=== PATIENT | male | born 1940 | race Caucasian/White ===

== ENCOUNTER 2018-02-12 10:45 | Inpatient (IN) | payer MEDICARE ==
[~2018-02-12] VITALS: Ht 182.9 cm; Wt 56.0 kg
[~2018-02-12 10:45] MED LIST: AMLODIPINE5 MG PO; AMOXICILLIN500 M1 OR; ASA LO-DOSE81 MG OR; ATENOLOL25 MG OR; HYDRALAZINE HCL25 MG PO; KEFLEX500 MG PO; LIPITOR40 M1 PO; LISINOP/HCTZ1 TA1 OR; LISINOPRIL20 MG PO; METOPROLOL SUCC50 MG PO; PERCOCET1 TA4 PO; PLAVIX75 MG OR; ZETIA10 MG PO
--- NOTE | 2018-02-12 11:05 | NUR ---
PT TRIAGED, TO TX ROOM VIA WC.
[2018-02-12 11:47] LABS: HEMATOCRIT 32.1 % (39.0-50.0); HEMOGLOBIN 10.3 g/dl (14.0-18.0); IMMATURE GRANULOCYTES 1.4 % (0.0-5.0); MEAN CELL VOLUME 95.3 fL CALC (80.0-100.0); MEAN CORPUSCULAR HGB 30.6 pG CALC (26.0-32.0); MEAN CORPUSCULAR HGB CONC 32.1 g/L CALC (32.0-36.0); NEUT# 7.61 thou/uL (1.82-7.42); RED BLOOD COUNT 3.37 mill/uL (4.70-6.10); RED CELL DISTRI WIDTH 13.6 % (11.5-15.5)
[2018-02-12 11:55] LABS: ALBUMIN 3.3 g/dL (3.2-5.0); ALKALINE PHOSPHATASE 111 u/l (38-126); ANION GAP 16 (6-22 (CALC)); BILIRUBIN, TOTAL 1.4 mg/dL (0.0-1.4); BUN 60 mg/dL (8-23); BUN/CREATININE RATIO 23 (12-20 (CALC)); CARBON DIOXIDE 25 mmol/l (22-30); CHLORIDE 104 mmol/l (95-108); CREATININE 2.6 mg/dL (0.7-1.3); GFR 24 ML/MIN (>=60 (CALC)); GFR FOR AFR.AMER. 29 ML/MIN (>=60 (CALC)); POTASSIUM 3.8 mmol/l (3.5-5.1); SGOT/AST 41 u/l (19-48); SODIUM 141 mmol/l (137-146); TOTAL PROTEIN 6.8 g/dL (6.3-8.2)
[2018-02-12 12:05] LABS: INFLUENZA A NONE DETECTED (NONE DETECT); INFLUENZA B NONE DETECTED (NONE DETECT)
--- NOTE | 2018-02-12 12:10 | NUR ---
PT RESTING QUIETLY ON STRETCHER, WITH FAMILY AT BEDSIDE. VITAL SIGNS STABLE AT THIS TIME. ZITHROMAX INFUSING THRU PORT.
--- NOTE | 2018-02-12 12:49 | NUR ---
BOTH ANTIBIOTICS ARE INFUSED. PT RESTING QUIETLY. DR. BENTLEY CALLED AND SPOKE WITH DR. VIGIL ABOUT POSSIBLE ADMISSION
--- NOTE | 2018-02-12 13:37 | NUR ---
TRIED TO GIVE REPORT TO NURSE ON MED SURG BUT NURSE IS UNAVAILABLE AT THIS TIME WILL RETURN CALL SOON POSSIBLE
--- NOTE | 2018-02-12 14:00 | NUR ---
CALLED AGAIN TO GIVE REPORT TO JIM GROVE , BUT REMAINS UNAVAILABLE. PT EATING LUNCH TRAY. NO DISTRESS AT THIS TIME
--- NOTE | 2018-02-12 14:13 | NUR ---
PINA GROVE PHONED, STATES WILL TAKE REPORT FOR JIM AND ACCEPT ADMISSION.
--- NOTE | 2018-02-12 14:16 | NUR ---
REPORT GIVEN TO PINA FOR CONTINUATION OF CARE. PT HAD JUST STOOD UP ON SIDE OF BED FOR URINE, APPROX 400CC OUTPUT OF YELLOW CONCENTRATED URINE, AND STATES FELT REALLY WEAK, HELPED BACK IN BED AND SIDE RAILS UP. CALL LIGHT WITHIN REACH.
--- NOTE | 2018-02-12 14:35 | NUR ---
PT TO FLOOR PER STRETCHER, WITH FAMILY ACCOMPANYING.
[2018-02-12 14:40] VITALS: BP 175/54
--- NOTE | 2018-02-12 14:44 | NUR ---
REPORT RECEIVED FORM REBECCA ON UNIT, PT ARRIVED ON UNIT @ 1427 BY ED STAFF VIA STRETCHER AND TRANSFERRED TO BED, O2 @ 2L VIA NC IN PLACE, TELE MONITOR IN PLACE, DENIED PAIN AT THIS TIME. ORIENTED TO ROOM AND CALL SANDRA, REQUESTED [facility]ICK[facility]OTH AT THIS TIME AND DIETARY NOTIFIED, WILL CONTINUE TO MONITOR, FAMILY AT BEDSIDE.
[2018-02-12 16:37] VITALS: BP 151/64
--- NOTE | 2018-02-12 16:53 | NUR ---
PT REFUSED 1600 MEDS, REPORTED HE HAD EITHER TAKEN THEN ALREADY THIS AM OR HIS RELATIONSHIP SPECIALIST HAD TAKEN HIM OFF THEM.
[2018-02-12 17:44] LABS: URINE BILIRUBIN - DIPSTICK NEGATIVE (NEGATIVE); URINE BLOOD DIPSTICK NEGATIVE (NEGATIVE); URINE CLARITY CLEAR; URINE COLOR YELLOW; URINE GLUCOSE - DIPSTICK NEGATIVE (NEGATIVE); URINE KETONE NEGATIVE (NEGATIVE); URINE LEUK ESTERASE NEGATIVE (NEGATIVE); URINE NITRITE - DIPSTICK NEGATIVE (Negative); URINE PROTEIN - DIPSTICK 100 mg/dL (NEG-TRACE)
[2018-02-12 17:57] LABS: URINE RBC 0-2 RBC/hpf (0-5); URINE WBC 0-2 WBC/hpf (0-5)
--- NOTE | 2018-02-12 19:30 | NUR ---
PATIENT APPEARS SLEEPING WITH HOB ELEVATED AND EYES CLOSED. O2 VIA NASAL CANNULA IN PLACE AT 2LPM. TELE MONITOR IN PLACE. LEFT UPPER CHEST PORT ACCESSED-APPEARS HEALTHY AT THIS TIME. CALL LIGHT IN REACH. WILL CONT TO MONITOR.
[2018-02-12 20:00] VITALS: BP 162/68
--- NOTE | 2018-02-12 21:30 | NUR ---
PATIENT RESTING IN BED-AWAKE ALERT AND ORIENTEDX3. PATIENT WITH O2 VIA NASAL CANNULA IN PLACE. TELE MONITOR IN PLACE. PATIENT WITH FREQUENT LOOSE COUGH-UNABLE TO EXPORATE THE SPUTUM MOST OF THE TIME-TOO WEAK. PATIENT STATES THAT IT IS WHITE WHEN HE IS ABLE TO SPIT IT UP. SAFETY PRECAUTIONS REINFORCED. CALL LIGHT IN REACH. WILL CONT TO MONITOR.
--- NOTE | 2018-02-13 00:06 | NUR ---
PATIENT APPEARS SLEEPING WITH HOB ELEVATED AND EYES CLOSED. O2 VIA NASAL CANNULA IN PLACE. TELE MONITOR IN PLACE. CALL LIGHT IN REACH. WILL CONT TO MONITOR.
[2018-02-13 00:47] VITALS: BP 152/69
--- NOTE | 2018-02-13 02:24 | NUR ---
PATIENT APEARS TO BE SLEEPING WITH HOB ELEVATED AND O2 VIA NASAL CANNULA IN PLACE. CALL LIGHT IN REACH. WILL CONT TO MONITOR
--- NOTE | 2018-02-13 04:42 | NUR ---
PATIENT RESTING IN BED WITH O2 VIA NASAL CANNULA IN PLACE AT 2LPM. PATIENT VOIDED 300 CC OF MARÍA URINEIN URINAL. PATIENT C/O RIB PAIN FROM ALL THE COUGHING AND MEDICATED WITH PERCOCET 10/325MG PO FOR PAIN. LAB WORK DRAWN FROM LEFT UPPER CHEST PORT-FLUSHED PER [facility] PROTOCOL WITH SALINE AND HEP MILLICENT. SITE IS HEALTHY AT THIS TIME. PATIENT CONT WITH COUGH-SEEMS TO BE MORE PRODUCTIVE THROUGH THE NIGHT WITH LIGHT YELLOW SPUTUM. SAFETY PRECAUTIONS REINFORCED. CALL LIGHT IN REACH. WILL CONT TO [id number].
[2018-02-13 04:45] VITALS: BP 178/54
[2018-02-13 05:27] LABS: HEMATOCRIT 27.3 % (39.0-50.0); HEMOGLOBIN 8.9 g/dl (14.0-18.0); IMMATURE GRANULOCYTES 1.5 % (0.0-5.0); MEAN CELL VOLUME 94.8 fL CALC (80.0-100.0); MEAN CORPUSCULAR HGB 30.9 pG CALC (26.0-32.0); MEAN CORPUSCULAR HGB CONC 32.6 g/L CALC (32.0-36.0); NEUT# 6.23 thou/uL (1.82-7.42); RED BLOOD COUNT 2.88 mill/uL (4.70-6.10); RED CELL DISTRI WIDTH 13.6 % (11.5-15.5)
[2018-02-13 05:38] LABS: BILIRUBIN, TOTAL 0.8 mg/dL (0.0-1.4); POTASSIUM 4.3 mmol/l (3.5-5.1); TOTAL PROTEIN 5.5 g/dL (6.3-8.2)
[2018-02-13 05:47] LABS: ALBUMIN 2.6 g/dL (3.2-5.0)
--- NOTE | 2018-02-13 07:17 | NUR ---
REPORT RECEIVED FROM MAINE JONES; PT LAYING IN BED AWAKE REQUEST A BLANKET WHICH WAS PROVIDED; PT STATED THAT HE WANTS TO REST IN BED TODAY; NO S/S OF DISTRESS NOTED.
--- NOTE | 2018-02-13 07:42 | NUR ---
SHIFT CHANGE REPORT FROM DEAN JONES AWAKE ALERT AND ORIENTED RESTING IN BED, C/O BEING COLD AND WARM BLANKET OFFERED, O2 @ 2L VIA NC IN PLACE, TELE MONITOR IN PLACE, CALL SANDRA IN REACH,
--- NOTE | 2018-02-13 08:00 | NUR ---
ASSESSMENT COMPLETED; PT SITTING UP IN BED EATING BREAKFAST; PT A/O X3; O2 @2L NC; RESP EVEN AND UNLABORED; LUNGS DIMINISHED; HEART SOUND IRREGULAR; ABD SOFT NON DISTENDED, ACTIVE BS; SKIN WARM/DRY; RADIAL PULSES STRONG; PEDAL PULSES WEAK; TELE IN PLACE READING SR 87 WITH IVCD; CARMINA CHEST PORT SITE LOOKS HEALTHY SL; PT HAS NO PAIN; SAFETY PRECAUTION REINFORCED; CALL SANDRA AND URINAL IN REACH; WILL CONTINUE TO MONITOR.
[2018-02-13 08:01] VITALS: BP 149/64
--- NOTE | 2018-02-13 10:19 | NUR ---
PT OFF FLOOR FOR AN US, VIA WC WITH 02 2L NC ACCOMPANIED BY FAMILY MEMBER
--- NOTE | 2018-02-13 11:36 | NUR ---
PT SITTING UP IN BED EATING LUNCH, AT BED SIDE; 02 @ 2L NC; TELE IN PLACE; PT VOICED NO CONCERNS; WILL CONTINUE TO MONITOR.
[2018-02-13 12:00] VITALS: BP 158/72
--- NOTE | 2018-02-13 14:46 | NUR ---
Spoke with patient about medications. Pt understood usages for medications and had no pertinent questions about therapy.
--- NOTE | 2018-02-13 15:12 | NUR ---
PT MEDICATED WITH PERCOCET FOR GENERALIZED PAIN 5/10 PAIN SCALE. PT VOICED NO OTHER CONCERS; PT REEDUCATED TO CALL FOR ASSISTANCE; NON PRODUCTIVE COUGH NOTED; CHEST PORT FLUSHED WITHOUT DIFFICULTY; URINAL AND CALL SANDRA WITHIN REACH.
[2018-02-13 16:00] VITALS: BP 156/65
[2018-02-13 19:28] VITALS: BP 135/64
--- NOTE | 2018-02-13 19:30 | NUR ---
PT IS IN BED W/RADIOLOGY AT BEDSIDE. WILL FOLLOW-UP AND CONTINUE TO MONITOR. NO S/S OF DISTRESS AT THIS TIME.
--- NOTE | 2018-02-14 00:10 | NUR ---
PT CLEANED OF INCONTINENT URINE, BEDDING CHANGED AND NEW GOWN ON. PT ASSISTED BACK TO BED AND MEDICATED FOR GENERALIZED PAIN REPORTED /. PT DENIES ANY OTHER NEEDS AT THIS TIME. CALL LIGHT AT BEDSIDE.
[2018-02-14 00:27] VITALS: BP 149/97
--- NOTE | 2018-02-14 04:25 | NUR ---
PT WAS SLEEPING UPON ENTERING ROOM. MEDICATED ORDERS PROVIDE. DENIES ANY OTHER NEEDS, CALL LIGHT W/IN REACH.
--- NOTE | 2018-02-14 04:27 | NUR ---
PT WAS SLEEPING SOUNDLY UPON ENTERING ROOM, AIDE OBTAINING V/S. C/O BEING COLD, ROOM TURNED WARMER AND WARMED BLANKET PROVIDED FROM WARMER. WILL CONTINUE TO MONITOR. CALL LIGHT W/IN REACH AND BED ALARM ON.
[2018-02-14 05:07] VITALS: BP 151/67
[2018-02-14 05:30] LABS: HEMATOCRIT 28.4 % (39.0-50.0); IMMATURE GRANULOCYTES 1.7 % (0.0-5.0); MEAN CELL VOLUME 96.3 fL CALC (80.0-100.0); MEAN CORPUSCULAR HGB 30.5 pG CALC (26.0-32.0); MEAN CORPUSCULAR HGB CONC 31.7 g/L CALC (32.0-36.0); NEUT# 5.76 thou/uL (1.82-7.42); RED BLOOD COUNT 2.95 mill/uL (4.70-6.10); RED CELL DISTRI WIDTH 13.6 % (11.5-15.5)
[2018-02-14 05:44] LABS: ALBUMIN 2.5 g/dL (3.2-5.0); BILIRUBIN, TOTAL 0.4 mg/dL (0.0-1.4); CREATININE 2.1 mg/dL (0.7-1.3); MAGNESIUM 1.9 mg/dL (1.6-2.3); POTASSIUM 4.8 mmol/l (3.5-5.1); TOTAL PROTEIN 5.3 g/dL (6.3-8.2)
--- NOTE | 2018-02-14 06:14 | NUR ---
Pt was sleeping as I entered the room. port flushed w/ns and heparine as orders provide and per protocol. Pt denies any needs at this time and is attempting to sleep.
[2018-02-14 08:20] VITALS: BP 131/49
--- NOTE | 2018-02-14 08:20 | NUR ---
ASSESSMENT IS COMPLETED: IV SITE IS FREE FROM REDNESS OR EDEMA. HR IS REG,PULSES ARE STRONG X4, ABD IS SOFT WITH ACTIVE BS. BREATH SOUND IS CLEAR ON RIGHT SIDE AND DIMINSHED IN THE LEFT. TELE MONITOR IN PLACE. CONTINUE TO OSBERVE AND MONITOR.
--- NOTE | 2018-02-14 09:26 | NUR ---
NEB TX NOT GIVEN DUE TO PT. RECEIVING A BATH.
[2018-02-14 11:04] VITALS: BP 152/60
--- NOTE | 2018-02-14 12:15 | NUR ---
PT IS RELAXING IN BED WITH NO DISTRESS NOTED. IV SITE IS FREE FROM REDNESS OR EDEMA. CONTINUE TO OBSERVE AND MONITOR.
[2018-02-14 15:17] VITALS: BP 143/57
--- NOTE | 2018-02-14 16:30 | NUR ---
PT IS RELAXING IN BED FAMILY HAS BEEN IN TO VISIT WITH NO DISTRESS NOTED, CONTINUE TO OBSERVE AND MONITOR.,
--- NOTE | 2018-02-14 19:50 | NUR ---
REPORT RECEIVED FROM DAY NURSE, PT IS SLEEPING AT THIS TIME. NO S/S OF DISTRESS NOTED. WILL CONTINUE TO MONITOR AND FOLLOW-UP WITH MEDICATIONS ORDERED AND ASSESSMENT.
[2018-02-14 20:00] VITALS: BP 152/67
--- NOTE | 2018-02-14 21:34 | NUR ---
PT MEDICATED ORDERS PROVIDE. PT IS ACTIVELY COUGHING UPON ENTERING ROOM AND ASSESSING. REPORTS COUGHING UP THICK WHITE FROTHY PHLEM. LUNG SOUNDS ARE CLEAR/DIM LOWER LOBES, NO NOTED EDEMA, SKIN APPEARS INTACT. PT/BEDDING IS DRY AT THIS TIME, REPORTS FREQUENT URINATION USING URINAL.
[2018-02-15] VITALS (7 sets, daily range): BP systolic 128–166; BP diastolic 51–75
--- NOTE | 2018-02-15 00:18 | NUR ---
PT IS SLEEPING AT THIS TIME, NO S/S OF DISTRESS NOTED. CALL LIGHT IS AT BEDSIDE W/IN REACH.
--- NOTE | 2018-02-15 04:02 | NUR ---
LABS DRAWN FROM PORT, PORT FLUSHED W/NS AND HEPARINE PER PROTOCOL. PT DENIES ANY NEEDS AT THIS TIME. CALL LIGHT IN HAND.
[2018-02-15 05:11] LABS: HEMATOCRIT 27.4 % (39.0-50.0); HEMOGLOBIN 8.9 g/dl (14.0-18.0); IMMATURE GRANULOCYTES 1.8 % (0.0-5.0); MEAN CELL VOLUME 95.1 fL CALC (80.0-100.0); MEAN CORPUSCULAR HGB 30.9 pG CALC (26.0-32.0); MEAN CORPUSCULAR HGB CONC 32.5 g/L CALC (32.0-36.0); NEUT# 5.55 thou/uL (1.82-7.42); RED BLOOD COUNT 2.88 mill/uL (4.70-6.10); RED CELL DISTRI WIDTH 13.6 % (11.5-15.5)
[2018-02-15 05:54] LABS: ALBUMIN 2.6 g/dL (3.2-5.0); BILIRUBIN, TOTAL 0.6 mg/dL (0.0-1.4); CREATININE 1.9 mg/dL (0.7-1.3); MAGNESIUM 1.9 mg/dL (1.6-2.3); POTASSIUM 4.6 mmol/l (3.5-5.1); TOTAL PROTEIN 5.5 g/dL (6.3-8.2)
--- NOTE | 2018-02-15 10:00 | NUR ---
PT RESTING IN BED, NO SIGNS OF DISTRESS NOTED, RESP EVEN AND UNLABORED. PT ON 02 2L NC,ALERT AND ORIENTED X3, DISCUSSED POC. ASSESSMENT COMPLETED AT THIS TIME. CALL LIGHT IN REACH,CONTINUE TO MONITOR.
--- NOTE | 2018-02-15 12:09 | NUR ---
RECEIVED CALL FROM ER PT HAD A RUN OF VTACH, STRIP FAXED TO THE FLOOR. PT IS SITTING IN BED EATING LUNCH, NO SIGNS OF DISTRESS NOTED, NOTIFIED MD OF VTAOSCAR, ORDERS FOR STAT EKG AND STAT TROPONIN. TROPONIN DRAWN FROM PORT. CALL LIGHT IN REACH,CONTINUE TO MONITOR.
--- NOTE | 2018-02-15 15:28 | NUR ---
PT RESTING IN BED SINCE PT HAS NOT HAD A BM IN A FEW DAYS, WARM MOM AND PRUNE JUICE GIVEN. PT ENCOURAGED TO CALL WHEN HE FEELS THE URGE TO HAVE A BM. CALL LIGHT IN REACH,CONTINUE TO MONITOR.
--- NOTE | 2018-02-15 17:00 | NUR ---
IV ROCEPHIN INITATED, PT C/O PAIN AT THIS TIME, MEDICATED WITH PERCOCET. CALL LIGHT IN REACH,CONTINUE TO MONITOR.
--- NOTE | 2018-02-15 19:10 | NUR ---
REPORT RECEIVED FROM DAY NURSE. PT IS IN BED IN HIGH FOWLERS POSITION WATCHING TV. AIDE IS OBTAINING V/S. ASSESSMENT COMPLETED, LUNG SOUNDS ARE CLEAR THROUGHOUT, HR REGULAR, ABD FIRM NON-TENDER W/ACTIVE BOWEL SOUNDS, PT LOCX4, POC DISCUSSED, NO NOTED EDEMA, SKIN APPEARS INTACT. PT REPORTS LACK OF APPETITE, BUT IMPROVED BREATHING AND ENERGY. PT DENIES ANY OTHER NEEDS, BUT HAS BEEN ENCOURAGED TO CALL IF ANY NEEDS ARISE OR HE NEEDS ASSISTANCE.
--- NOTE | 2018-02-15 21:08 | NUR ---
PT MEDICATED ORDERS PROVIDE, PORT FLUSHED AND HEP-LOCKED. PT ASSISTED IN REPOSITIONING, DENIED ANY OTHER ASSISTANCE OR NEEDS AT THIS TIME. CALL LIGHT IS AT BEDSIDE AND PT ENCOURAGED TO CALL ANY NEEDS MAY ARISE.
--- NOTE | 2018-02-16 00:35 | NUR ---
Pt is sleeping at this time. no s/s of distress. call light w/in reach.
[2018-02-16 04:30] VITALS: BP 145/73
--- NOTE | 2018-02-16 04:30 | NUR ---
PT WAS SLEEPING WHEN I ENTERED THE ROOM, BUT AWOKE TO MY VOICE. NO S/S OF DISTRESS, NO S/O SOB, LUNG SOUNDS ARE CLEAR, V/S ASSESSED AT THIS TIME. URINAL EMPTIED OF 250CC CLEAR YELLOW URINE. PT ASSISTED REPOSITIONING AND PO FLUIDS. DENIES ANY OTHER NEEDS, CALL LIGHT AT BEDSIDE.
--- NOTE | 2018-02-16 07:05 | NUR ---
REPORT RECEIVED FROM MAINE STEELE;PT APPEARS TO BE SLEEPING IN SEMI FOWLERS POSITION;RESPIRATIONS EVEN AND UNLABORED ON RA;NO S/S OF DISTRESS NOTED; TELE MONITOR IN PLACE;ALL SAFETY PRECAUTIONS REINFORCED WITH FALL PRECAUTIONS IN PLACE AND BED IN THE LOWEST POSITION;CALL LIGHT IN REACH;WILL CONTINUE TO MONITOR
[2018-02-16 07:40] VITALS: BP 164/74
[2018-02-16 08:17] LABS: CREATININE 1.8 mg/dL (0.7-1.3)
[2018-02-16 08:30] LABS: POTASSIUM 5.5 mmol/l (3.5-5.1)
--- NOTE | 2018-02-16 08:50 | NUR ---
PT RESTING IN SEMI FOWLERS POSITION WITH VISITOR AT BEDSIDE;ALERT AND ORIENTED X4;ASSESSMENT COMPLETED;RESPIRATIONS EVEN AND UNLABORED, SHALLOW ON RA;CLEAR LUNG SOUNDS NOTED;ABDOMEN SOFT ON PALPATION AND HYPOACTIVE IN ALL 4 QUADRANTS;STRONG PEDAL PULSES;SKIN INTACT; LEFT UPPER CHEST PORT PATENT WITH GOOD BLOOD RETURN NOTED;TELE MONITOR IN PLACE;O2 AT BEDSIDE PRN;PT DENIES ANY ADDITIONAL NEEDS AT THIS TIME;URINAL AT BEDSIDE;ENCOURAGED TO CALL FOR ASSISTANCE IF NEEDED;FALL PRECAUTIONS IN PLACE WITH CALL LIGHT IN REACH;WILL CONTINUE TO MONITOR
--- NOTE | 2018-02-16 09:30 | NUR ---
PT ADMINISTERED GLYCERIN SUP 3GM FOR LACK OF BM SINCE 02/12/18,PT TOLERATED WELL;WILL CONTINUE TO MONITOR
[2018-02-16 09:34] VITALS: BP 165/61
--- NOTE | 2018-02-16 11:00 | NUR ---
PT REPORTS LARGE/BROWN SOFT BOWEL MOVEMENT AT THIS TIME.
--- NOTE | 2018-02-16 11:30 | NUR ---
PT AMBULATING INDEPENDENTLY THE HALLWAY WITH AT SIDE.
--- NOTE | 2018-02-16 11:45 | NUR ---
PT RESTING IN SEMI FOWLERS POSITION EATING LUNCH WITH FAMILY AT BEDSIDE;RESPIRATIONS EVEN AND UNLABORED ON RA;PT DENIES ANY CURRENT PAIN OR NEEDS;TELE MONITOR IN PLACE;PT ENCOURAGED TO CALL FOR ASSISTANCE IF NEEDED;FALL PRECAUTIONS IN PLACE WITH CALL LIGHT IN REACH;WILL CONTINUE TO MONITOR
[2018-02-16 12:47] VITALS: BP 130/64
--- NOTE | 2018-02-16 14:06 | NUR ---
AT BEDSIDE DISCUSSING POC.
[2018-02-16] MEDS ORDERED: PREDNISONE10 MG PO (14:41)
[2018-02-16] MEDS ORDERED: DOXYCYCL HYC100 MG PO (14:41)
[2018-02-16] MEDS ORDERED: ZITHROMAX500 MG PO (14:45)
[2018-02-16] MEDS ORDERED: AUGMENTIN500TAB PO (14:45)
--- NOTE | 2018-02-16 15:20 | NUR ---
PT RESTING IN BED WITH SPOUSE AT BEDSIDE;PT REFUSES TO STAY FOR FINAL DOSE OF ROCEPHIN AND ZITHROMAX WHILE IN HOSPITAL;VS OBTAINED;DISCHARGE PLAN DISCUSSED AND PT VERBALIZES UNDERSTANDING;LEFT UPPER CHEST PORT TO BE DE-ACESSED BY MAINE SEGURA;PT DENIES ANY ADDITIONAL NEEDS AT THIS TIME;WILL CONTINUE TO MONITOR
[2018-02-16 15:21] VITALS: BP 158/71
--- NOTE | 2018-02-16 15:37 | NUR ---
ALL DISCHARGE INSTRUCTIONS PROVIDED TO PT AND SPOUSE AT THIS TIME, INCLUDING PRESCRIPTIONS WHICH WERE DISCUSSED INDEPTH;PT DENIES ANY CURRENT QUESTIONS OR NEEDS;WHEELCHAIR TO BE PROVIDED FOR DISCHARGE.
--- NOTE | 2018-02-16 15:40 | NUR ---
Discharge instructions given. Patient verbalizes understanding of same. Discharged in stable condition via Wheelchair to Home with spouse. All belongings sent with pt. Pt wheelchaired down to parking lot by monica mays and spouse at side.
[2018-02-16] MEDS ORDERED: NEBULIZER COMPRESSOR (21:31)
[2018-02-16] MEDS ORDERED: DUONEB IN (21:31)
== END 2018-02-16 15:40 | disposition home or self-care (01) | DRG 190 ==
LOC: ED 10:45 → ED-I 11:42 → ED 11:42 → MS2 13:26
PROVIDERS: Emergency Medicine; Internal Medicine; ADMIT Internal Medicine Nephrology; ATTEND Internal Medicine Nephrology
DX: J44.1 Chronic obstructive pulmonary disease with (acute) exacerbation (principal); J18.9 Pneumonia, unspecified organism; N17.9 Acute kidney failure, unspecified; I13.0 Hypertensive heart and chronic kidney disease with heart failure and stage 1 through stage 4 chronic kidney disease, or unspecified chronic kidney disease; N18.4 Chronic kidney disease, stage 4 (severe); C18.9 Malignant neoplasm of colon, unspecified; Z68.1 Body mass index [BMI] 19.9 or less, adult; J44.0 Chronic obstructive pulmonary disease with (acute) lower respiratory infection; I50.9 Heart failure, unspecified; R63.6 Underweight; I25.10 Atherosclerotic heart disease of native coronary artery without angina pectoris; D63.1 Anemia in chronic kidney disease; E86.0 Dehydration; K59.00 Constipation, unspecified; Z86.718 Personal history of other venous thrombosis and embolism; Z95.820 Peripheral vascular angioplasty status with implants and grafts; Z79.02 Long term (current) use of antithrombotics/antiplatelets; Z92.3 Personal history of irradiation; Z95.1 Presence of aortocoronary bypass graft; Z95.3 Presence of xenogenic heart valve; Z79.899 Other long term (current) drug therapy

== ENCOUNTER 2018-05-12 12:31 | Emergency (ER) | payer MEDICARE ==
[~2018-05-12] VITALS: Ht 182.9 cm; Wt 56.8 kg
[~2018-05-12 12:31] MED LIST changes: +AUGMENTIN500TAB PO; +DOXYCYCL HYC100 MG PO; +DUONEB IN; +NEBULIZER COMPRESSOR; +PREDNISONE10 MG PO; +ZITHROMAX500 MG PO
[2018-05-12 13:39] LABS: HEMATOCRIT 33.2 % (39.0-50.0); HEMOGLOBIN 10.9 g/dl (14.0-18.0); IMMATURE GRANULOCYTES 0.6 % (0.0-5.0); MEAN CELL VOLUME 96.2 fL CALC (80.0-100.0); MEAN CORPUSCULAR HGB 31.6 pG CALC (26.0-32.0); MEAN CORPUSCULAR HGB CONC 32.8 g/L CALC (32.0-36.0); NEUT# 10.81 thou/uL (1.82-7.42); RED BLOOD COUNT 3.45 mill/uL (4.70-6.10); RED CELL DISTRI WIDTH 13.3 % (11.5-15.5)
[2018-05-12 13:53] LABS: ALBUMIN 3.1 g/dL (3.2-5.0); BILIRUBIN, TOTAL 0.9 mg/dL (0.0-1.4); CREATININE 2.5 mg/dL (0.7-1.3); POTASSIUM 3.8 mmol/l (3.5-5.1); TOTAL PROTEIN 5.6 g/dL (6.3-8.2)
[2018-05-12 15:24] LABS: C. DIFFICILE TOXIN A&B POSITIVE (NEGATIVE)
[2018-05-12] MEDS ORDERED: VANCOMYCIN HCL125 MG PO (16:51)
[2018-05-12 17:08] VITALS: BP 128/67
== END 2018-05-12 17:25 | disposition home or self-care (01) ==
LOC: ED 12:31
PROVIDERS: Emergency Medicine
DX: A04.72 Enterocolitis due to Clostridium difficile, not specified as recurrent (principal); I10 Essential (primary) hypertension; Z85.038 Personal history of other malignant neoplasm of large intestine; Z92.3 Personal history of irradiation; Z92.21 Personal history of antineoplastic chemotherapy; Z90.49 Acquired absence of other specified parts of digestive tract; Z86.718 Personal history of other venous thrombosis and embolism; Z95.1 Presence of aortocoronary bypass graft; Z95.820 Peripheral vascular angioplasty status with implants and grafts; Z95.828 Presence of other vascular implants and grafts

== ENCOUNTER 2018-06-14 13:00 | Observation (INO) | payer MEDICARE ==
[~2018-06-14] VITALS: Ht 182.9 cm; Wt 57.2 kg
[~2018-06-14 13:00] MED LIST changes: +VANCOMYCIN HCL125 MG PO
--- NOTE | 2018-06-14 13:16 | NUR ---
PATIENT TO ROOM VIA WHEELCHAIR AND PHYSICIAN AT BEDSIDE FOR EVAL
[2018-06-14 13:38] LABS: IMMATURE GRANULOCYTES 0.5 % (0.0-5.0); MEAN CELL VOLUME 95.9 fL CALC (80.0-100.0); MEAN CORPUSCULAR HGB 30.4 pG CALC (26.0-32.0); MEAN CORPUSCULAR HGB CONC 31.7 g/L CALC (32.0-36.0); NEUT# 8.99 thou/uL (1.82-7.42); RED BLOOD COUNT 4.41 mill/uL (4.70-6.10); RED CELL DISTRI WIDTH 13.2 % (11.5-15.5)
[2018-06-14 13:39] LABS: HEMATOCRIT 42.3 % (39.0-50.0); HEMOGLOBIN 13.4 g/dl (14.0-18.0)
[2018-06-14 13:52] LABS: BILIRUBIN, TOTAL 0.9 mg/dL (0.0-1.4); POTASSIUM 3.6 mmol/l (3.5-5.1)
[2018-06-14 13:59] LABS: TOTAL PROTEIN 7.1 g/dL (6.3-8.2)
--- NOTE | 2018-06-14 14:08 | NUR ---
ALERT. ORIENTED. TALKATIVE AND PLEASANT. CONERN IS THAT HE MAY NOT MAKE THE TOILET IN TIME
--- NOTE | 2018-06-14 14:47 | NUR ---
NO DIARRHEA SINCE ARRIVAL. NEED SPECIMEN OF STOOL AND URINE.
--- NOTE | 2018-06-14 14:51 | NUR ---
REPORT CALLED TO GABI MCNAMARA
--- NOTE | 2018-06-14 15:01 | NUR ---
TO MS VIA STRETCHER
[2018-06-14 15:04] VITALS: BP 150/63
--- NOTE | 2018-06-14 15:10 | NUR ---
RECEIVED PT FROM ER VIA STRETCHER ACCOMPANIED BY STAFF. IV SITE IS FREE FROM REDNESS OR EDEMA. CONTINUE TO OSBERVE AND MONITOR.
--- NOTE | 2018-06-14 15:30 | NUR ---
ASSESSMENT IS COMPLETED; IV SITE IS FREE FROM REDNESS OR EDEMA. HR IS REG, PULSES ARE STRONG X4, ABD IS SOFT WITH ACTIVE BS. BREATH SOUNDS ARE CLEAR,BILATERALLY, NO C/O SOB. TELE MONITOR IN PLACE. CONTINUE TO OSEBRVE AND MONITOR.,
--- NOTE | 2018-06-14 17:52 | NUR ---
PT HAS A WATERY STOOL. WILL SEND FOR TESTING. WILL PLACE PT ON CONTACT FOR CDIFF PRECAUTIONS.
--- NOTE | 2018-06-14 19:00 | NUR ---
RECEIVED REPORT FROM DAY SHIFT NURSE. PT RESTING IN BED WATCHING TV. PT HAS NO NEEDS AT THIS TIME. CALL SANDRA IN REACH. WILL CONTINUE TO MONITOR.
[2018-06-14 19:09] LABS: C. DIFFICILE TOXIN A&B NEGATIVE (NEGATIVE)
--- NOTE | 2018-06-14 19:25 | NUR ---
PT'S LAB CAME BACK NEG FOR C DIFF . TAKEN OFF CONTACT PRECAUTIONS/
[2018-06-14 19:37] VITALS: BP 134/61
--- NOTE | 2018-06-14 21:26 | NUR ---
PT RESTING IN BED WITH EYES CLOSED. PT WAKES WITH VERBAL STIMULI. A&0 x3. ASSESMENT COMPLETED AT THIS TIME. PT IS VERY EMACIATED. NO EDEMA NOTED. HEART SOUNDS IRREGULAR. NO NEEDS AT THIS TIME. CALL SANDRA IN REACH WILL CONTINUE TO MONITOR.
[2018-06-15 00:10] VITALS: BP 148/58
--- NOTE | 2018-06-15 00:11 | NUR ---
PT HAD MODERATE AMOUNT OF WATERY FOUL SMELLING BM. PT HAS NO OTHER NEEDS AT THIS TIME. CALL SANDRA IN REACH. WILL CONTIUE TO MONITOR.
--- NOTE | 2018-06-15 04:00 | NUR ---
PT RESTING QUIETLY IN BED. NO S/S OF DISTRESS. CALL SANDRA IN REACH. WILL CONTINUE TO MONITOR.
[2018-06-15 04:02] VITALS: BP 133/67
[2018-06-15 05:54] LABS: IMMATURE GRANULOCYTES 0.4 % (0.0-5.0); MEAN CELL VOLUME 94.3 fL CALC (80.0-100.0); MEAN CORPUSCULAR HGB 30.6 pG CALC (26.0-32.0); MEAN CORPUSCULAR HGB CONC 32.4 g/L CALC (32.0-36.0); NEUT# 6.48 thou/uL (1.82-7.42); RED BLOOD COUNT 3.53 mill/uL (4.70-6.10); RED CELL DISTRI WIDTH 13.2 % (11.5-15.5)
[2018-06-15 05:58] LABS: HEMATOCRIT 33.3 % (39.0-50.0); HEMOGLOBIN 10.8 g/dl (14.0-18.0)
[2018-06-15 06:22] LABS: ALBUMIN 2.8 g/dL (3.2-5.0); ALKALINE PHOSPHATASE 72 u/l (38-126); AMYLASE < 30 u/l (30-110); ANION GAP 14 (6-22 (CALC)); BILIRUBIN, TOTAL 0.6 mg/dL (0.0-1.4); BUN 50 mg/dL (8-23); BUN/CREATININE RATIO 18 (12-20 (CALC)); CARBON DIOXIDE 19 mmol/l (22-30); CHLORIDE 108 mmol/l (95-108); CREATININE 2.7 mg/dL (0.7-1.3); GFR 23 ML/MIN (>=60 (CALC)); GFR FOR AFR.AMER. 28 ML/MIN (>=60 (CALC)); LIPASE 39 u/l (23-300); MAGNESIUM 1.8 mg/dL (1.6-2.3); POTASSIUM 3.2 mmol/l (3.5-5.1); SGOT/AST 10 u/l (19-48); SODIUM 138 mmol/l (137-146); TOTAL PROTEIN 5.3 g/dL (6.3-8.2)
--- NOTE | 2018-06-15 07:20 | NUR ---
PT RESTING IN BED, NO SIGNS OF DISTRESS NOTED, RESP EVEN AND UNLABORED. DISCUSSED POC, PT HAS PORT TO L CHEST IVF INFUSING. PT STATES HE HAS BEEN IN REMISSION FOR 2YRS, ALERT AND ORIENTED X3, NO N/V PT IS VERY THIN, LIVES WITH AND DAUGHTER AT HOME. STATES HE HAS BEEN VOMITTING FOR PAST 4 DAYS, NO VOMITTING NOTED AT THIS TIME. ASSESSMENT COMPLETED, CALL LIGHT IN REACH,CONTINUE TO MONITOR.
[2018-06-15 08:28] VITALS: BP 159/66
[2018-06-15 08:35] LABS: URINE BILIRUBIN - DIPSTICK NEGATIVE (NEGATIVE); URINE BLOOD DIPSTICK NEGATIVE (NEGATIVE); URINE COLOR YELLOW; URINE GLUCOSE - DIPSTICK NEGATIVE (NEGATIVE); URINE KETONE NEGATIVE (NEGATIVE); URINE LEUK ESTERASE NEGATIVE (NEGATIVE); URINE NITRITE - DIPSTICK NEGATIVE (Negative); URINE PH 5.5 (4.5-8.0); URINE PROTEIN - DIPSTICK 100 mg/dL (NEG-TRACE); URINE SPECIFIC GRAVITY >=1.030; URINE UROBILINOGEN - DIPSTICK 0.2 E.U./dL (0.2)
[2018-06-15 08:40] LABS: URINE RBC 0-2 RBC/hpf (0-5); URINE WBC 0-2 WBC/hpf (0-5)
--- NOTE | 2018-06-15 11:05 | NUR ---
PT RESTING IN BED, DISCUSSED 20MEQ HANNAH, PT IN AGREEMENT. PT VOICES NO NEEDS OR COMPLAINTS AT THIS TIME. INITAITED IV POTASSIUM AT THIS TIME. CALL LIGHT IN REACH,CONTINUE TO MONITOR.
--- NOTE | 2018-06-15 13:05 | NUR ---
HANNAH COMPLETED AT THIS TIME, PT VOICES NO NEEDS OR COMPLAINTS AT THIS TIME. CALL LIGHT IN REACH,CONTINUE TO MONITOR.
[2018-06-15 16:12] VITALS: BP 144/72
--- NOTE | 2018-06-15 19:00 | NUR ---
RECIEVED REPORT FROM DAY NURSE. PT RESTING IN BED WATCHING TV. NO NEEDS AT THIS TIME. CALL SANDRA IN REACH. WILL CONTINUE TO MONITOR.
[2018-06-15 20:12] VITALS: BP 151/75
--- NOTE | 2018-06-15 21:34 | NUR ---
PT RESTING IN BED WATCHING TV. PT IS A&O x3. PT FEELS AND LOOKS MUCH BETTER FROM PREVIOUS DAY. PT IS CHATTY AND LIVELY. BSC EMPTIED OF SMALL LOOSE BOWEL MOVEMENT. ASSESMENT COMPLETED AT THIS TIME. PT IS VERY EMACIATED. NO EDEMA. IV INFUSING WELL. NO OTHER NEEDS AT THIS TIME. CALL SANDRA IN REACH. WILL CONTINUE TO MONITOR.
[2018-06-16] VITALS (9 sets, daily range): BP systolic 129–181; BP diastolic 60–87
--- NOTE | 2018-06-16 | NUR ---
PT RESTING IN BED WITH LIGHTS OFF AND EYES CLOSED. NO S/S OF DISTRESS NOTED. CALL SANDRA IN REACH. WILL CONTIUE TO MONITOR.
--- NOTE | 2018-06-16 04:00 | NUR ---
PT RESTING QUIETLY IN BED. NO S/S OF DISTRESS NOTED. CALL SANDRA IN REACH. WILL CONTINUE TO MONITOR.
[2018-06-16 05:49] LABS: HEMATOCRIT 30.1 % (39.0-50.0); HEMOGLOBIN 9.7 g/dl (14.0-18.0); MEAN CORPUSCULAR HGB 30.6 pG CALC (26.0-32.0); MEAN CORPUSCULAR HGB CONC 32.2 g/L CALC (32.0-36.0); NEUT# 6.07 thou/uL (1.82-7.42); RED BLOOD COUNT 3.17 mill/uL (4.70-6.10); RED CELL DISTRI WIDTH 13.1 % (11.5-15.5)
[2018-06-16 05:55] LABS: CREATININE 1.9 mg/dL (0.7-1.3); MAGNESIUM 1.5 mg/dL (1.6-2.3); POTASSIUM 3.3 mmol/l (3.5-5.1)
--- NOTE | 2018-06-16 08:00 | NUR ---
PT RETURNED FROM BSC TO BED, NO SIGNS OF DISTRESS NOTED, RESP EVEN AND UNLABORED. PT ALERT AND ORIENTED X3, NO EDEMA. ASSESSMENT COMPLETED. DISCUSSED POC, PT STATES HE FEELS BETTER. CALL LIGHT IN REACH,CONTINUE TO MONITOR.
--- NOTE | 2018-06-16 11:15 | NUR ---
PT RESTING IN BED, NO SIGNS OF DISTRESS NOTED, RESP EVEN AND UNLABORED. BP OBTAINED AND IS ELEVATED 181/87. RN NOTIFIED AND APRESOLING IV GIVEN. PT TOLERATED WELL. AT BEDSIDE, PT REQUESTING TO SHOWER. CALL LIGHT IN REACH,CONTINUE TO MONITOR.
--- NOTE | 2018-06-16 11:51 | NUR ---
PT RETURNED FROM SHOWER, SITTING IN RECLINER AT BEDSIDE. BP OBTAINED, STABLE. PT VOICES NO NEEDS OR COMPLAINTS AT THIS TIME. CALL LIGHT IN REACH,CONTINUE TO MONITOR.
--- NOTE | 2018-06-16 19:00 | NUR ---
RECEIVED REPORT FROM DAY SHIFT NURSE. PT RESTING QUIETLY IN BED. NO NEEDS AT THIS TIME. CALL SANDRA IN REACH. WILL CONTINUE TO MONITOR.
--- NOTE | 2018-06-16 20:44 | NUR ---
PT INCONTINENT OF LOOSE LARGE BROWN STOOL. PT ASSISTED BY PAROLE AGENT WITH CLEAN UP AND HELPED BACK INTO BED. CALL SANDRA IN REACH. WILL CONTINUE TO MONITOR.
--- NOTE | 2018-06-16 20:52 | NUR ---
PT RESTING IN BED WITH LIGHTS OFF. ASSEMENT COMPLETED AT THIS TIME. IV INFUSING WELL. NO SWELLING OR EDEMA. PT IS A&0 x3. NO NEEDS AT THIS TIME. CALL SANDRA IN REACH. WILL CONTINUE TO MONITOR.
--- NOTE | 2018-06-17 | NUR ---
PT RESTING IN BED WITH EYES CLOSED. NO S/S OF DISTRESS NOTED. CALL SANDRA IN REACH/. WILL CONTINUE TO MONITOR.
[2018-06-17 04:10] VITALS: BP 141/63
[2018-06-17 05:10] LABS: CREATININE 1.7 mg/dL (0.7-1.3); MAGNESIUM 1.9 mg/dL (1.6-2.3); POTASSIUM 3.2 mmol/l (3.5-5.1)
[2018-06-17 05:11] LABS: HEMATOCRIT 28.6 % (39.0-50.0); HEMOGLOBIN 9.4 g/dl (14.0-18.0); IMMATURE GRANULOCYTES 0.7 % (0.0-5.0); MEAN CELL VOLUME 94.4 fL CALC (80.0-100.0); MEAN CORPUSCULAR HGB CONC 32.9 g/L CALC (32.0-36.0); NEUT# 6.21 thou/uL (1.82-7.42); RED BLOOD COUNT 3.03 mill/uL (4.70-6.10); RED CELL DISTRI WIDTH 13.2 % (11.5-15.5)
[2018-06-17 07:55] VITALS: BP 153/65
--- NOTE | 2018-06-17 08:06 | NUR ---
DEJAN REPORT, PT AWAKE ALERT AND ORIENTED X 3, DENIES PAIN AT THIS TIME, HAVING LOOSE STOOLS NOW, IVF INFUSING, TELE MONITOR IN PLACE, CALL SANDRA IN REACH.
[2018-06-17 12:56] VITALS: BP 146/57
[2018-06-17 18:27] VITALS: BP 152/62
[2018-06-17 18:56] VITALS: BP 141/70
--- NOTE | 2018-06-17 20:24 | NUR ---
Patient resting in bed. No complaints of pain. V/S wnl. Breath sounds clear. abdomen soft with active bowel sounds in all 4 quadrants. L CW Port intact and hep locked. No S&S of distress. Will continue to monitor patient progress.
--- NOTE | 2018-06-17 23:33 | NUR ---
Patient resting in bed. No S&S of distress. Will continue to monitor patient progress. No change in previous assessment.
[2018-06-17 23:59] VITALS: BP 116/57
--- NOTE | 2018-06-18 04:00 | NUR ---
Patient resting in bed. Patient continues to have diarrhea. Patienet given immodium. No complaints of pain. Will continue to monitor patient progress.
[2018-06-18 04:09] VITALS: BP 144/61
[2018-06-18 06:11] LABS: ALBUMIN 2.6 g/dL (3.2-5.0); CREATININE 1.7 mg/dL (0.7-1.3); POTASSIUM 3.5 mmol/l (3.5-5.1)
[2018-06-18 08:02] VITALS: BP 141/64
--- NOTE | 2018-06-18 08:15 | NUR ---
SHIFT CHANGE REPORT, PT AWAKE ALERT AND ORIENTED,, DENIES PAIN BUT C/O EPISODES DIARRHEA, ALL OTHER NEEDS MET, CALL SANDRA IN REACH.
[2018-06-18 11:20] VITALS: BP 151/63
[2018-06-18 15:42] VITALS: BP 130/56
[2018-06-18 20:13] VITALS: BP 137/59
--- NOTE | 2018-06-18 22:36 | NUR ---
PATIENT INCONT OF LARGE AMT OF BROWN WATERY STOOL. PATIENT ASSISTED WITH PERSONAL CARE AND BED LINENS CHANGED. HOUSEKEEPING HERE TO CLEAN THE FLOORS. PATIENT MEDICATED WITH IMODIUM ORDERED FOR DIARRHEA. CALL LIGHT IN REACH. WILL CONT TO MONITOR.
[2018-06-19] VITALS (7 sets, daily range): BP systolic 122–166; BP diastolic 50–65
--- NOTE | 2018-06-19 04:20 | NUR ---
APPEARS SLEEPING AT THIS TIME WITH EYES CLOSED. RESP ARE EVEN AND UNLABORED. TELE MONITOR IN PLACE. CALL LIGHT IN REACH. WILL CONT TO MONITOR.
[2018-06-19 05:03] LABS: HEMATOCRIT 30.7 % (39.0-50.0); HEMOGLOBIN 9.7 g/dl (14.0-18.0); IMMATURE GRANULOCYTES 0.5 % (0.0-5.0); MEAN CORPUSCULAR HGB CONC 31.6 g/L CALC (32.0-36.0); NEUT# 10.51 thou/uL (1.82-7.42); RED BLOOD COUNT 3.23 mill/uL (4.70-6.10); RED CELL DISTRI WIDTH 13.4 % (11.5-15.5)
[2018-06-19 05:36] LABS: ALBUMIN 2.3 g/dL (3.2-5.0); BILIRUBIN, TOTAL 0.5 mg/dL (0.0-1.4); CREATININE 1.7 mg/dL (0.7-1.3); MAGNESIUM 1.6 mg/dL (1.6-2.3); POTASSIUM 3.3 mmol/l (3.5-5.1); TOTAL PROTEIN 4.6 g/dL (6.3-8.2)
--- NOTE | 2018-06-19 07:00 | NUR ---
SHIFT CHANGE REPORT, PT SLEEPING SOUNDLY, BREATHING EVEN AND NON-LABORED, NO SIGN DISTRESS, CALL SANDRA IN REACH.
--- NOTE | 2018-06-19 10:51 | NUR ---
PT HAS HAD AT LEAST 2 ACCIDENTAL INCONTINENT LIQUID BMS SINCE START OF THIS SHIFT, ANTI-DIARRHEA MEDICATION DOES NOT SEEM TO BE EFFECTIVE, WILL ADDRESS CONCERNS WITH MD.
--- NOTE | 2018-06-19 11:02 | NUR ---
RESTING IN RECLINER AT THIS TIME.
--- NOTE | 2018-06-19 19:50 | NUR ---
REPORT RECEIVED FROM MAINE FERNANDEZ. PATIENT LAYING IN BED, AWAKE AND ALERT. PATIENT IS PENDING BED ASSIGNMENT FOR PENDING TRANSFER TO [facility] FOR GI CONSULT. PATIENT HAS A PORT ON THE LEFT SIDE WITH ACCESS HEP-LOCKED. NO CURRENT C/O PAIN OR NEEDS EXPRESSED. BED IN LOWEST POSITION, WHEELS LOCKED, AND CALL LIGHT WITHIN REACH.
--- NOTE | 2018-06-19 21:50 | NUR ---
PATIENT LAYING IN BED- AWAKE AND ALERT. PATIENT REQUESTED TO TAKE IMODIUM 2MG-ORDERED PRN AND REQUESTED A CUP OF COFFEE WELL . PATIENT REPORTED HAVING A BM AND REPORT IT WAS DIARRHEA.
--- NOTE | 2018-06-20 00:45 | NUR ---
REPORT RECEIVED FROM MAINE FERNANDEZ. PATIENT LAYING IN BED, AWAKE AND ALERT. PATIENT IS PENDING BED ASSIGNMENT FOR PENDING TRANSFER TO [facility] FOR GI CONSULT. PATIENT HAS A PORT ON THE LEFT SIDE WITH ACCESS HEP-LOCKED. NO CURRENT C/O PAIN OR NEEDS EXPRESSED. BED IN LOWEST POSITION, WHEELS LOCKED, AND CALL LIGHT WITHIN REACH.
--- NOTE | 2018-06-20 01:36 | NUR ---
PATIENT LAYING IN BED EYES CLOSED AND APPEARS TO BE RESTING COMFORTABLY, RESP ARE QUIET AND NON-LABORED, NO S/SX OF DISTRESS OR DISCOMFORT NOTED AT THIS TIME.
[2018-06-20 04:49] VITALS: BP 144/60
[2018-06-20 05:38] LABS: ALBUMIN 2.4 g/dL (3.2-5.0); CREATININE 1.8 mg/dL (0.7-1.3); POTASSIUM 3.5 mmol/l (3.5-5.1)
--- NOTE | 2018-06-20 07:30 | NUR ---
REPORT RECEIVED FROM GABI DEL CASTILLO. PT SUPINE IN BED. SLEEPING. CALL LIGHT WITHIN REACH.
[2018-06-20 07:59] VITALS: BP 145/65
--- NOTE | 2018-06-20 08:30 | NUR ---
PT UP TO RESTROOM, LARGE LIQUID STOOL ON FLOOR. PT ASSISTED W/ HYGIENCE. FLOOR AND ROOM CLEANED. PLAN OF CARE DISCUSSED. FALL PRECAUTIONS REINFORCED. CALL LIGHT REVIEWED AND IN REACH. PT DENIES PAIN. REPORTING OF CONCERNS ENCOURAGED. TRANSFER ORDER TO [facility] DISCUSSED. STILL AWAITING BED ASSIGNEMNT.
[2018-06-20 11:17] VITALS: BP 138/56
--- NOTE | 2018-06-20 13:11 | NUR ---
DR. SPENCER IN TO SEE PT. PLAN OF CARE DISCUSSED. TRANSFER TO [facility] REVIEWED.
[2018-06-20 15:20] VITALS: BP 125/50
--- NOTE | 2018-06-20 16:37 | NUR ---
PT REPORTS NO FURTHER BM'S SINCE THIS AM. DENIES PAIN. IVF STARTED PER DR. SPENCER. PT'S DAUGHTER AT BEDSIDE.
--- NOTE | 2018-06-20 19:20 | NUR ---
REPORT FROM SANDRA RN. PT RESTING IN BED AT THIS TIME. PT DENIES ANY PAIN OR DISCOMFORT. NO DISTRESS NOTED. IV FLUIDS INFUSING WITHOUT DIFFICULTY. PORT ACCESSED, SITE APPEARS HEALTHY. DISCUSSED POC. PT VERBALIZED UNDERSTANDING. CALL LIGHT WITHIN REACH. WILL CONTINUE TO MONITOR.
[2018-06-20 19:43] VITALS: BP 125/56
--- NOTE | 2018-06-20 23:45 | NUR ---
PT RESTING IN BED WITH EYES CLOSED. NO DISTRESS NOTED. CALL LIGHT WITHIN REACH. WILL CONTINUE TO MONITOR.
[2018-06-20 23:59] VITALS: BP 123/51
[2018-06-21 04:16] VITALS: BP 158/55
--- NOTE | 2018-06-21 04:16 | NUR ---
PT RESTING. DENIES ANY PAIN OR DISCOMFORT. PT OOB FOR DAILY WEIGHT AND VS. PT TOLERATED WELL. CALL LIGHT WITHIN REACH. WILL CONTINUE TO MONITOR.
--- NOTE | 2018-06-21 07:06 | NUR ---
REPORT RECEIVED FROM RADHA. PT IS RESTING IN BED WITH NO S/S OF DISTRESS NOTED. PT DENIES ANY NEEDS AT THIS TIME. IN ROOM AND CALL LIGHT IN REACH.
[2018-06-21 07:42] VITALS: BP 151/63
--- NOTE | 2018-06-21 08:20 | NUR ---
ASSESSMENT DONE. PT IS A&O X3. TELE IN PLACE. IVF FLUID INFUSING WELL. PT DENIES ANY PAIN AT THIS TIME OR NEEDS. CALL LIGHT IN REACH.
[2018-06-21 11:33] VITALS: BP 128/55
--- NOTE | 2018-06-21 11:43 | NUR ---
PT IS SETUP TO EAT HIS LUNCH. PT DENIES ANY NEEDS AT THIS TIME. PT DENIES PAIN AT THIS TIME. CALL LIGHT IN REACH.
--- NOTE | 2018-06-21 15:15 | NUR ---
MAINE JARA REACCESS LEFT SIDE PORT WITH G 20. PT TOLERATED WELL. PT DENIES ANY OTHER NEEDS AT THIS TIME. CALL LIGHT IN REACH.
[2018-06-21 16:05] VITALS: BP 134/57
--- NOTE | 2018-06-21 19:00 | NUR ---
REPORT RECIVED FROM MAINE SPAULDING. PT RESTING IN BED WITH EYES CLOSED. RESPIRATIONS EVEN AND UNLABORED ON RA. SAFETY PRECAUTION IN PLACE. WILL CONTINUE TO MONITOR.
[2018-06-21 19:01] VITALS: BP 140/60
--- NOTE | 2018-06-21 20:00 | NUR ---
PT RESTING IN BED WITH EYES CLOSED, EASILY AROUSED. ALERT AND ORIENTED. RESPIRATIONS EVEN AND UNLABORED, LUNGS SOUND DIMINISHED. PEDAL PULSES WEAK. SKIN INTACT. PORT APPEARS HEALTHY, PATENT. SAFETY PRECAUTIONS IN PLACE. CALL LIGHT WITHIN REACH. WILL CONTINUE TO MONITOR.
[2018-06-21 23:41] VITALS: BP 141/64
--- NOTE | 2018-06-22 00:05 | NUR ---
PT BEING TRANFER TO [facility] VIA [employer]. PT LEAVING IN STABLE CONDITION. ALL BELONGINGS GOING WITH PT. CALLED REPORT TO KAVEH AT [facility].
--- NOTE | 2018-06-22 01:42 | NUR ---
Patient being transferred. Patient verbalizes understanding of same. Transferred in stable condition via [facility] to [facility]. All belongings sent with pt.
== END 2018-06-22 00:05 ==
LOC: ED 13:00 → ED-I 14:00 → ED 14:11 → MS2 14:12
PROVIDERS: Family Medicine; Internal Medicine Nephrology; Nurse Practitioner Family; ADMIT Internal Medicine Nephrology; ATTEND Internal Medicine Nephrology
DX: R19.7 Diarrhea, unspecified (principal); R11.2 Nausea with vomiting, unspecified; N17.9 Acute kidney failure, unspecified; E86.0 Dehydration; I12.9 Hypertensive chronic kidney disease with stage 1 through stage 4 chronic kidney disease, or unspecified chronic kidney disease; N18.3 Chronic kidney disease, stage 3 (moderate); I25.10 Atherosclerotic heart disease of native coronary artery without angina pectoris; I71.4 Abdominal aortic aneurysm, without rupture; I73.9 Peripheral vascular disease, unspecified; E87.2 Acidosis; I95.9 Hypotension, unspecified; Z68.1 Body mass index [BMI] 19.9 or less, adult; E43 Unspecified severe protein-calorie malnutrition; E87.6 Hypokalemia; G62.0 Drug-induced polyneuropathy; T45.1X5D Adverse effect of antineoplastic and immunosuppressive drugs, subsequent encounter; D63.1 Anemia in chronic kidney disease; I70.1 Atherosclerosis of renal artery; N25.81 Secondary hyperparathyroidism of renal origin; N28.1 Cyst of kidney, acquired; R91.8 Other nonspecific abnormal finding of lung field; E83.42 Hypomagnesemia; Z95.2 Presence of prosthetic heart valve; Z85.038 Personal history of other malignant neoplasm of large intestine; Z90.49 Acquired absence of other specified parts of digestive tract; Z95.820 Peripheral vascular angioplasty status with implants and grafts
CPT/HCPCS: G0378; J1756; J3475; S0164

== ENCOUNTER 2018-09-13 11:24 | Inpatient (IN) | payer MEDICARE ==
[~2018-09-13] VITALS: Ht 182.9 cm; Wt 55.0 kg
[2018-09-13 12:29] LABS: URINE BILIRUBIN - DIPSTICK MODERATE (NEGATIVE); URINE BLOOD DIPSTICK NEGATIVE (NEGATIVE); URINE COLOR DK. YELLOW; URINE GLUCOSE - DIPSTICK NEGATIVE (NEGATIVE); URINE KETONE TRACE mg/dL (NEGATIVE); URINE LEUK ESTERASE NEGATIVE (NEGATIVE); URINE NITRITE - DIPSTICK NEGATIVE (Negative); URINE PROTEIN - DIPSTICK 100 mg/dL (NEG-TRACE); URINE SPECIFIC GRAVITY 1.025; URINE UROBILINOGEN - DIPSTICK 0.2 E.U./dL (0.2)
[2018-09-13 12:30] LABS: URINE MUCUS MODERATE hpf (NONE-FEW)
[2018-09-13 12:42] LABS: HEMATOCRIT 35.1 % (39.0-50.0); HEMOGLOBIN 11.2 g/dl (14.0-18.0); IMMATURE GRANULOCYTES 0.5 % (0.0-5.0); MEAN CELL VOLUME 99.2 fL CALC (80.0-100.0); MEAN CORPUSCULAR HGB 31.6 pG CALC (26.0-32.0); MEAN CORPUSCULAR HGB CONC 31.9 g/L CALC (32.0-36.0); NEUT# 18.68 thou/uL (1.82-7.42); RED BLOOD COUNT 3.54 mill/uL (4.70-6.10); RED CELL DISTRI WIDTH 12.9 % (11.5-15.5)
[2018-09-13 12:58] LABS: ALBUMIN 3.4 g/dL (3.2-5.0); BILIRUBIN, TOTAL 0.6 mg/dL (0.0-1.4); POTASSIUM 4.9 mmol/l (3.5-5.1)
[2018-09-13 13:04] LABS: CREATININE 3.6 mg/dL (0.7-1.3)
[2018-09-13 18:30] VITALS: BP 146/65
[2018-09-14 04:10] VITALS: BP 111/42
[2018-09-14 07:43] VITALS: BP 130/58
[2018-09-14 11:32] LABS: HEMATOCRIT 30.5 % (39.0-50.0); HEMOGLOBIN 10.2 g/dl (14.0-18.0); IMMATURE GRANULOCYTES 0.9 % (0.0-5.0); MEAN CELL VOLUME 95.9 fL CALC (80.0-100.0); MEAN CORPUSCULAR HGB 32.1 pG CALC (26.0-32.0); MEAN CORPUSCULAR HGB CONC 33.4 g/L CALC (32.0-36.0); NEUT# 24.74 thou/uL (1.82-7.42); RED BLOOD COUNT 3.18 mill/uL (4.70-6.10); RED CELL DISTRI WIDTH 12.9 % (11.5-15.5)
[2018-09-14 11:43] LABS: CREATININE 2.7 mg/dL (0.7-1.3)
[2018-09-14 15:15] VITALS: BP 147/64
[2018-09-14 19:05] VITALS: BP 112/52
[2018-09-15 00:27] VITALS: BP 115/60
[2018-09-15 04:00] VITALS: BP 120/58
[2018-09-15 05:05] LABS: HEMATOCRIT 29.9 % (39.0-50.0); IMMATURE GRANULOCYTES 1.1 % (0.0-5.0); MEAN CELL VOLUME 95.8 fL CALC (80.0-100.0); MEAN CORPUSCULAR HGB 32.1 pG CALC (26.0-32.0); MEAN CORPUSCULAR HGB CONC 33.4 g/L CALC (32.0-36.0); NEUT# 21.32 thou/uL (1.82-7.42); RED BLOOD COUNT 3.12 mill/uL (4.70-6.10); RED CELL DISTRI WIDTH 13.1 % (11.5-15.5)
[2018-09-15 05:20] LABS: CREATININE 2.3 mg/dL (0.7-1.3); POTASSIUM 3.7 mmol/l (3.5-5.1)
[2018-09-15 08:42] VITALS: BP 122/51
[2018-09-15 14:50] VITALS: BP 120/55
[2018-09-15 19:25] VITALS: BP 131/55
[2018-09-16 06:03] VITALS: BP 122/59
[2018-09-16 06:08] LABS: HEMATOCRIT 29.8 % (39.0-50.0); HEMOGLOBIN 9.9 g/dl (14.0-18.0); IMMATURE GRANULOCYTES 0.8 % (0.0-5.0); MEAN CELL VOLUME 96.4 fL CALC (80.0-100.0); MEAN CORPUSCULAR HGB CONC 33.2 g/L CALC (32.0-36.0); NEUT# 16.05 thou/uL (1.82-7.42); RED BLOOD COUNT 3.09 mill/uL (4.70-6.10); RED CELL DISTRI WIDTH 13.1 % (11.5-15.5)
[2018-09-16 06:22] LABS: CREATININE 2.2 mg/dL (0.7-1.3); POTASSIUM 3.6 mmol/l (3.5-5.1)
[2018-09-16 08:00] VITALS: BP 128/39
[2018-09-16 16:05] VITALS: BP 121/51
[2018-09-16 19:16] VITALS: BP 137/42
[2018-09-17 04:53] VITALS: BP 129/62
[2018-09-17 08:16] VITALS: BP 134/77
[2018-09-17 14:50] VITALS: BP 131/59
[2018-09-17 19:35] VITALS: BP 133/60
[2018-09-18 04:18] VITALS: BP 158/75
[2018-09-18 05:51] LABS: HEMOGLOBIN 9.4 g/dl (14.0-18.0); IMMATURE GRANULOCYTES 1.7 % (0.0-5.0); MEAN CORPUSCULAR HGB 31.4 pG CALC (26.0-32.0); MEAN CORPUSCULAR HGB CONC 32.4 g/L CALC (32.0-36.0); NEUT# 8.64 thou/uL (1.82-7.42); RED BLOOD COUNT 2.99 mill/uL (4.70-6.10); RED CELL DISTRI WIDTH 12.9 % (11.5-15.5)
[2018-09-18 05:59] LABS: CREATININE 1.9 mg/dL (0.7-1.3); LIPASE 101 u/l (23-300); POTASSIUM 3.3 mmol/l (3.5-5.1)
[2018-09-18 06:00] LABS: AMYLASE < 30 u/l (30-110)
[2018-09-18 08:02] VITALS: BP 153/66
[2018-09-18 14:36] VITALS: BP 161/75
[2018-09-18 16:00] VITALS: BP 157/61
[2018-09-18 19:37] VITALS: BP 157/67
[2018-09-19 04:00] VITALS: BP 160/80
[2018-09-19 05:24] LABS: HEMATOCRIT 28.3 % (39.0-50.0); HEMOGLOBIN 9.4 g/dl (14.0-18.0); IMMATURE GRANULOCYTES 2.6 % (0.0-5.0); MEAN CELL VOLUME 96.6 fL CALC (80.0-100.0); MEAN CORPUSCULAR HGB 32.1 pG CALC (26.0-32.0); MEAN CORPUSCULAR HGB CONC 33.2 g/L CALC (32.0-36.0); NEUT# 7.6 thou/uL (1.82-7.42); RED BLOOD COUNT 2.93 mill/uL (4.70-6.10); RED CELL DISTRI WIDTH 12.8 % (11.5-15.5)
[2018-09-19 05:26] LABS: BILIRUBIN, TOTAL 0.4 mg/dL (0.0-1.4); CREATININE 1.6 mg/dL (0.7-1.3); MAGNESIUM 1.7 mg/dL (1.6-2.3); POTASSIUM 3.6 mmol/l (3.5-5.1)
[2018-09-19 05:27] LABS: TOTAL PROTEIN 4.1 g/dL (6.3-8.2)
[2018-09-19 08:15] VITALS: BP 171/76
[2018-09-19 15:05] VITALS: BP 175/74
[2018-09-19 20:26] VITALS: BP 203/91
[2018-09-20 00:19] VITALS: BP 183/82
[2018-09-20 02:28] VITALS: BP 160/72
[2018-09-20 04:17] VITALS: BP 158/72
[2018-09-20 09:10] VITALS: BP 149/67
[2018-09-20 09:14] VITALS: BP 149/67
[2018-09-20] MEDS ORDERED: (None)125 MG PO (11:41)
== END 2018-09-20 13:00 | disposition home health service (06) | DRG 372 ==
LOC: ED 11:24 → ED-I 15:58 → ED 16:28 → MS2 16:29
PROVIDERS: Emergency Medicine; Nurse Practitioner Family; ADMIT Internal Medicine Nephrology; ATTEND Internal Medicine
DX: A04.71 Enterocolitis due to Clostridium difficile, recurrent (principal); N17.9 Acute kidney failure, unspecified; E46 Unspecified protein-calorie malnutrition; Z68.1 Body mass index [BMI] 19.9 or less, adult; N18.4 Chronic kidney disease, stage 4 (severe); E86.0 Dehydration; I12.9 Hypertensive chronic kidney disease with stage 1 through stage 4 chronic kidney disease, or unspecified chronic kidney disease; I25.10 Atherosclerotic heart disease of native coronary artery without angina pectoris; I71.4 Abdominal aortic aneurysm, without rupture; J44.9 Chronic obstructive pulmonary disease, unspecified; I73.9 Peripheral vascular disease, unspecified; D63.1 Anemia in chronic kidney disease; G62.0 Drug-induced polyneuropathy; T45.1X5D Adverse effect of antineoplastic and immunosuppressive drugs, subsequent encounter; Z95.3 Presence of xenogenic heart valve; Z86.718 Personal history of other venous thrombosis and embolism; Z95.1 Presence of aortocoronary bypass graft; Z95.820 Peripheral vascular angioplasty status with implants and grafts; Z85.038 Personal history of other malignant neoplasm of large intestine; Z92.3 Personal history of irradiation; Z92.21 Personal history of antineoplastic chemotherapy; Z86.19 Personal history of other infectious and parasitic diseases; Z90.49 Acquired absence of other specified parts of digestive tract
CPT/HCPCS: G0378

== ENCOUNTER 2019-10-30 14:46 | Inpatient (IN) | payer MEDICARE ==
[~2019-10-30] VITALS: Ht 182.9 cm; Wt 54.1 kg
[~2019-10-30 14:46] MED LIST changes: +(None)125 MG PO
--- NOTE | 2019-10-30 14:50 | NUR ---
Pt to room # 6 for bedside triage
--- NOTE | 2019-10-30 15:00 | NUR ---
PT CHANGED TO GOWN. MONITORS IN PLACE. PT AO X 3. SKIN PALE WARM AND DRY. BILATERAL PITTING PEDAL EDEMA NOTED. PT REPORTS SHORT OF BREATH GETTING WORSE FOR THE PAST MONTH. DAUGHTER AT BEDSIDE
[2019-10-30 15:47] LABS: HEMATOCRIT 29.8 % (39.0-50.0); HEMOGLOBIN 8.9 g/dl (14.0-18.0); IMMATURE GRANULOCYTES 0.4 % (0.0-5.0); MEAN CELL VOLUME 99.7 fL CALC (80.0-100.0); MEAN CORPUSCULAR HGB 29.8 pG CALC (26.0-32.0); MEAN CORPUSCULAR HGB CONC 29.9 g/dL CAL (32.0-36.0); NEUT# 3.91 thou/uL (1.82-7.42); RED BLOOD COUNT 2.99 mill/uL (4.70-6.10); RED CELL DISTRI WIDTH 14.8 % (11.5-15.5)
[2019-10-30 16:11] LABS: ALBUMIN 3.6 g/dL (3.2-5.0); BILIRUBIN, TOTAL 0.7 mg/dL (0.0-1.4); CREATININE 1.8 mg/dL (0.7-1.3); TOTAL PROTEIN 6.6 g/dL (6.3-8.2)
[2019-10-30 16:14] LABS: POTASSIUM 5.9 mmol/l (3.5-5.1)
[2019-10-30 16:15] LABS: C-REACTIVE PROTEIN 1.4 mg/dL (0-0.9)
--- NOTE | 2019-10-30 16:16 | NUR ---
COVID SWAB DONE. PT TOLERATED PROCEDURE WELL. SECOND SET OF BLOOD CULTURES DRAWN
--- NOTE | 2019-10-30 17:00 | NUR ---
DR REY AT BEDSIDE. SPOKE WITH PATIENT REGARDING PLAN OF CARE. PT GIVEN JUICE AND PUDDING
--- NOTE | 2019-10-30 17:04 | NUR ---
SBAR PRINTED TO FLOOR
--- NOTE | 2019-10-30 17:25 | NUR ---
MED SURG UNABLE TO TAKE REPORT AT THIS TIME
--- NOTE | 2019-10-30 17:56 | NUR ---
REPROT REC FROM IRENE GROVE
--- NOTE | 2019-10-30 18:00 | NUR ---
REPORT GIVEN TO EMELY GROVEE [employer] PROJECT MANAGER
--- NOTE | 2019-10-30 18:12 | NUR ---
PTS DAUGHTER CALLED LEFT MESSAGE TO CALL REGARDING MED RECONSILIATION
[2019-10-30 18:15] VITALS: BP 154/85
--- NOTE | 2019-10-30 18:16 | NUR ---
PT ARRIVED TO [facility] VIA WC ACCOMPANIED BY IRENE GROVE. A&O X3. SHALLOW BREATHING NOTED. O2 % 89-91 ON RA, O2 VIA NC @2L PLACED. +3 EDEMA NOTED TO BILATERAL LEGS. MED REC NOT OBTAINED IN ER, PT UNABLE TO VERIFY MEDICATIONS THAT HE IS CURRENTLY TAKING, PER VANESSA OR DAUGHTER TO CALL BACK WITH MED LIST. URINE SAMPLE OBTAINED AND SENT TO LAB. NO NEEDS AT THIS TIME. ORIENTED PT TO ROOM.
--- NOTE | 2019-10-30 18:20 | NUR ---
PT TRANSPORTED VIA WHEELCHAIR TELEMETRY IN PLACE TO [facility]
[2019-10-30 18:34] LABS: URINE BILIRUBIN - DIPSTICK NEGATIVE (NEGATIVE); URINE BLOOD DIPSTICK NEGATIVE (NEGATIVE); URINE COLOR YELLOW; URINE GLUCOSE - DIPSTICK NEGATIVE (NEGATIVE); URINE KETONE NEGATIVE (NEGATIVE); URINE LEUK ESTERASE NEGATIVE (NEGATIVE); URINE NITRITE - DIPSTICK NEGATIVE (Negative); URINE PROTEIN - DIPSTICK 100 mg/dL (NEG-TRACE); URINE SPECIFIC GRAVITY 1.025; URINE UROBILINOGEN - DIPSTICK 0.2 E.U./dL (0.2)
[2019-10-30 18:50] LABS: URINE RBC 0-2 RBC/hpf (0-5); URINE WBC 0-2 WBC/hpf (0-5)
--- NOTE | 2019-10-30 19:44 | NUR ---
PHONE CALL FROM DAUGHTER HOME MEDICATION LIST PROVIDED TO [employer] SUPERVISOR. ADMITTING PHYSICIAN NOTIFIED, NEW ORDERS RECEIVED AT THIS TIME AND TO CONTINUE HOME MEDS. WILL MEDICATE ONCE PHARMACY PROFILES AND CONTINUE TO MONITOR.
--- NOTE | 2019-10-30 23:37 | NUR ---
PT MEDICATED FOR PAIN ORDERED. ADAMA AMADOR APPLIED AT THIS TIME. VSS. PT DENIES ANY OTHER WANTS OR NEEDS. CALL LIGHT WITHIN REACH. WILL CONTINUE TO MONITOR.
[2019-10-30 23:45] VITALS: BP 100/70
[2019-10-30 23:47] VITALS: BP 116/80
--- NOTE | 2019-10-31 03:07 | NUR ---
PT RESTING IN BED WITH EYES CLOSED. NO APPARENT DISTRESS NOTED. PT WAKES EASILY. DENIES ANY PAIN OR DISCOMFORT. RESIDENT CARE AID IN PLACE. ADAMA AMADOR ON. CALL LIGHT WITHIN REACH. WILL CONTINUE TO MONITOR.
[2019-10-31 04:08] VITALS: BP 152/80
[2019-10-31 06:06] LABS: CREATININE 1.9 mg/dL (0.7-1.3)
[2019-10-31 06:16] LABS: POTASSIUM 5.6 mmol/l (3.5-5.1)
[2019-10-31 07:33] VITALS: BP 131/88
--- NOTE | 2019-10-31 07:33 | NUR ---
PT SITTING IN BED. A&O X3. O2 VIA NC @2L IN PLACE. NO DISTRESS OR NEEDS AT THIS TIME. ADAMA HOSES IN PLACE, EDEMA TO BILATERAL LEGS/FEET HAVE SHOWN IMPROVEMENT COMPARED TO LAST NIGHT. LEGS ELEVATED. NO OTHER NEEDS AT THIS TIME. ASSESSMENT COMPLETED. DISCUSSED POC. ISOLATION PRECAUTIOS IN PLACE. CALL LIGHT IN REACH. CONTINUE TO MONITOR.
--- NOTE | 2019-10-31 08:46 | NUR ---
DR BULLOCK AT BEDSIDE DISCUSSING POC
[2019-10-31 11:00] VITALS: BP 128/80
--- NOTE | 2019-10-31 16:33 | NUR ---
PER KASHIF IN ED TELEMETRY READING, PT CONVERTED TO AFIB. RT AT BEDSIDE OBTAINING EKG
--- NOTE | 2019-10-31 16:38 | NUR ---
EKG RESULTS COMMUNICATED WITH DR HALL. ASHA HALL START PT ON HEPARIN 5,000 UNITS SQ BID DVT PROPHYLAXIS AND CONTINUE TO MONITOR. PT CURRENTLY ASYMPTOMATIC. AFIB HEARD UPON AUSCULTATION. PT ENCOURAGED TO CALL IF NEW SYMPTOMS OCCUR. PT VERBALIZED UNDERSTANDING. CALL LIGHT IN REACH. CONTINUE TO MONITOR
[2019-10-31 18:15] VITALS: BP 107/67
[2019-10-31 18:27] VITALS: BP 107/64
--- NOTE | 2019-10-31 20:01 | NUR ---
REPORT FROM MIRACLE ASHLEY. PT RESTING IN BED. ALERT AND ORIENTED X3. O2 VIA NC @ 2L/M. BARREL DRAINER IN PLACE. NO DISTRESS OR NEEDS AT THIS TIME. TEDHOSE ON, TRACE EDEMA NOTED. PT VOIDING IN URINAL. DISCUSSED POC. PT VERBALIZED UNDERSTANDING. CALL LIGHT WITHIN REACH. WILL CONTINUE TO MONITOR.
--- NOTE | 2019-10-31 22:40 | NUR ---
REPORT FROM MIRACLE ASHLEY. PT RESTING IN BED. ALERT AND ORIENTED X3. O2 VIA NC @ 2L/M. INDUCTION MACHINE OPERATOR IN PLACE. NO DISTRESS OR NEEDS AT THIS TIME. TEDHOSE ON, TRACE EDEMA NOTED. PT VOIDING IN URINAL. DISCUSSED POC. PT VERBALIZED UNDERSTANDING. CALL LIGHT WITHIN REACH. WILL CONTINUE TO MONITOR.
[2019-10-31 23:45] VITALS: BP 111/67
--- NOTE | 2019-11-01 00:17 | NUR ---
PT MEDICATED FOR PAIN ORDERED. PT DENIES ANY OTHER WANTS OR NEEDS. NO APPARENT DISTRESS NOTED. CALL LIGHT WITHIN REACH. WILL CONTINUE TO MONITOR.
[2019-11-01 04:30] VITALS: BP 135/80
--- NOTE | 2019-11-01 04:30 | NUR ---
PT RESTING IN BED WITH EYES CLOSED. NO APPARENT DISTRESS NOTED. RESPIRATIONS EVEN AND UNLABORED. CALL LIGHT WITHIN REACH. WILL CONTINUE TO MONITOR.
[2019-11-01 07:14] VITALS: BP 135/88
--- NOTE | 2019-11-01 07:14 | NUR ---
PT SITTING IN BED WATCHING TV. A&O X3. NO DISTRESS NOTED. O2 VIA NC @2L IN PLACE. MAJOR IMPROVEMENT NOTED TO BILATERAL EXTREMITIES. SLIGHT +1 EDEMA NOTED TO THE RT FOOT, NO EDEMA NOTED TO THE LT FOOT. NO OTHER NEEDS AT THIS TIME. ASSESSMENT COMPLETED. DISCUSSED POC. CALL LIGHT IN REACH. CONTINUE TO MONITOR.
[2019-11-01 09:53] LABS: HEMATOCRIT 30.8 % (39.0-50.0); HEMOGLOBIN 9.1 g/dl (14.0-18.0); MEAN CELL VOLUME 98.7 fL CALC (80.0-100.0); MEAN CORPUSCULAR HGB 29.2 pG CALC (26.0-32.0); MEAN CORPUSCULAR HGB CONC 29.5 g/dL CAL (32.0-36.0); RED BLOOD COUNT 3.12 mill/uL (4.70-6.10); RED CELL DISTRI WIDTH 14.5 % (11.5-15.5)
[2019-11-01 10:11] LABS: POTASSIUM 5.1 mmol/l (3.5-5.1)
[2019-11-01 10:30] VITALS: BP 142/86
--- NOTE | 2019-11-01 12:10 | NUR ---
PT SLEEPING IN BED. RESP EVEN AND UNLABORED. CONTINUE TO MONITOR.
[2019-11-01 15:00] VITALS: BP 123/43
--- NOTE | 2019-11-01 17:31 | NUR ---
PT SITTING IN BED. NO DISTRESS OR NEEDS AT THIS TIME. CALL LIGHT IN REACH. CONTIUE TO MONITOR.
--- NOTE | 2019-11-01 19:00 | NUR ---
REPORT RECEIVED FROM Mauricio NAGY LPN, CARE OF PT ASSUMED AT THIS TIME.
--- NOTE | 2019-11-01 19:24 | NUR ---
RECEIVED CALL FROM PTS DAUGHTER MARY ANNE DAVIS , DAUGHTER PROVIDED 4 DIGIT COMMUNICATION CODE. UPDATES ON PTS STATUS PROVIDED. DAUGHTER VOICES CONCERN ABOUT PTS RISK FOR ASPIRATION. WILL ENDORSE TO ONCOMING NURSE AND PROVIDER, CONSIDER ST EVAL.
[2019-11-01 19:30] VITALS: BP 114/65
--- NOTE | 2019-11-01 21:40 | NUR ---
PT RESTING IN BED, APPERS COMFORTABLE AND IN NO APPARENT DISTRESS. RESPIRATIONS REGULAR AND UNLABORED. PHYSICAL ASSESMENT COMPLETE. SCHEDULED MEDICATION ADMINISTERED. SCHEDULED PERCOCET ADMINISTERED EARLY PER PTS REQUEST FOR C/O GENERALIZED PAIN 08/09. 400ML CLEAR YELLOW URINE EMPTIED FROM BEDSIDE URINAL. PT DENIES FURTHER NEEDS AT THIS TIME. PLAN OF CARE REVIEWED, PT VERBALIZES UNDERSTANDING AND DENIES QUESTIONS. PERSONAL ITEMS WITHIN REACH. BED LOCKED IN LOW POSITION W/ BEDRAILS UP X2. CALL SANDRA WITHIN REACH, AGREES TO CALL PRN.
[2019-11-01 23:30] VITALS: BP 95/50
[2019-11-02] VITALS (9 sets, daily range): BP systolic 114–140; BP diastolic 41–75
--- NOTE | 2019-11-02 00:49 | NUR ---
PT SLEEPING @ THIS TIME. APPEARS COMFORTABLE AND IN NO DISTRESS. RESPIRATIONS REGULAR AND UNLABORED. PERSONAL ITEMS REMAIN WITHIN REACH. CALL SANDRA REMAINS WITHIN REACH. BED REMAINS LOCKED IN LOW POSITION WITH BEDRAILS UP X2 AND BED ALARM ACTIVATED.
--- NOTE | 2019-11-02 05:36 | NUR ---
PT RESTING IN BED. APPEARS COMFORTABLE AND IN NO DISTRESS. RESPIRATIONS REGULAR AND UNLABORED.PHYSICAL ASSESEMNT REMAINS UNCHANGED FROM BEGINIING OF SHIFT BASELINE ASSESMENT. PERSONAL ITEMS REMAIN WITHIN REACH. CALL SANDRA REMAINS WITHIN REACH. BED REMAINS LOCKED IN LOW POSITION WITH BEDRAILS UP X2.
[2019-11-02 05:39] LABS: HEMOGLOBIN 7.7 g/dl (14.0-18.0); MEAN CELL VOLUME 98.5 fL CALC (80.0-100.0); MEAN CORPUSCULAR HGB 29.2 pG CALC (26.0-32.0); MEAN CORPUSCULAR HGB CONC 29.6 g/dL CAL (32.0-36.0); RED BLOOD COUNT 2.64 mill/uL (4.70-6.10); RED CELL DISTRI WIDTH 14.5 % (11.5-15.5)
[2019-11-02 05:42] LABS: CREATININE 2.3 mg/dL (0.7-1.3)
[2019-11-02 05:51] LABS: MAGNESIUM 2.4 mg/dL (1.6-2.3); POTASSIUM 5.2 mmol/l (3.5-5.1)
--- NOTE | 2019-11-02 07:00 | NUR ---
SHIFT CHANGE REPORT, PT AWAKE ALERT AND ORIENTED SITTING UP IN BED, C/O GENERALISED PAIN, STATED HE HAS NOT HAD BM SINCE 3 DAYS BEFORE ADMISSION, PASSING GAS, ORDERED LAXATIVE WITH PJ GIVEN, ALL NEEDS ADDRESSED, O2 @ 1L VIA NC IN PLACE, TELE MONITOR IN PLACE, CALL SANDRA IN REACH.
--- NOTE | 2019-11-02 12:00 | NUR ---
MEDICAL TEAM ROUNDED, DISCUSSED PLAN OF CARE, PT STATED UNDERSTANDING.
--- NOTE | 2019-11-02 16:00 | NUR ---
RESTING IN BED, 1 UNIT PRBC INFUSED AND WELL TOLERATED, PT EDUCATED ON CONSTIPATION PREVENTION AND WILL HAVE PHYSICAL THERAPY IN AM, ALL NEEDS ADDRESSED.
[2019-11-03] VITALS (7 sets, daily range): BP systolic 101–133; BP diastolic 50–70
[2019-11-03 08:04] LABS: MEAN CELL VOLUME 98.5 fL CALC (80.0-100.0); MEAN CORPUSCULAR HGB 29.6 pG CALC (26.0-32.0); RED BLOOD COUNT 3.28 mill/uL (4.70-6.10); RED CELL DISTRI WIDTH 14.9 % (11.5-15.5)
[2019-11-03 08:13] LABS: HEMATOCRIT 32.3 % (39.0-50.0); HEMOGLOBIN 9.7 g/dl (14.0-18.0)
--- NOTE | 2019-11-03 09:00 | NUR ---
PT SEEN AT REST IN THE BED, NO DISTRESS. PT WITH CLEAR LUNGS, 1 LPM NC. HR IRREGULAR, AFB. PT CACHECTIC. NO COMPLAINTS, NO DISTRESS, PT STATES THAT HE IS BREATHING MUCH BETTER SINCE ARRIVAL TO HOSPITAL.
[2019-11-03 11:30] LABS: CREATININE 2.2 mg/dL (0.7-1.3); POTASSIUM 5.1 mmol/l (3.5-5.1)
--- NOTE | 2019-11-03 16:27 | NUR ---
PT SEEN BY BRYANNA RUCKER FOR DR العلي, NEW ORDERS RECEIVED. PT REMAINS AT REST IN THE BED, NO DISTRESS.
--- NOTE | 2019-11-03 19:55 | NUR ---
ASSESSMENT COMPLETED. NO DISTRESS NOTED; DENIES NEEDS/PAIN. IV SITE PATENT AND SL; SCHED MEDS GIVEN. ENCOURAGED TO CALL FOR ANY NEEDS. CALL LIGHT IS IN REACH.
--- NOTE | 2019-11-03 23:30 | NUR ---
PT. ASSISTED TO USE URINAL AND BACK INTO BED; PT. IS WITH EXERTIONAL SOB. O2 @1LITER/MIN INFUSING PER NC. PT. MEDICATED WITH SCHEDULED PERCOCET FOR CHRONIC PAIN; WILL REASSESS.
[2019-11-04 04:00] VITALS: BP 112/59
--- NOTE | 2019-11-04 04:05 | NUR ---
RESTING IN BED WITH NO DISTRESS NOTED; DENIES NEEDS/PAIN.ENCOURAGED TO CALL FOR ANY NEEDS.
[2019-11-04 05:56] LABS: HEMATOCRIT 31.1 % (39.0-50.0); HEMOGLOBIN 9.3 g/dl (14.0-18.0); MEAN CELL VOLUME 98.7 fL CALC (80.0-100.0); MEAN CORPUSCULAR HGB 29.5 pG CALC (26.0-32.0); MEAN CORPUSCULAR HGB CONC 29.9 g/dL CAL (32.0-36.0); RED BLOOD COUNT 3.15 mill/uL (4.70-6.10); RED CELL DISTRI WIDTH 14.7 % (11.5-15.5)
--- NOTE | 2019-11-04 05:59 | NUR ---
PT. MEDICATED WITH ORDERED/SCHED PERCOCET FOR CHRONIC PAIN AND PRN MOM FOR CONSTIPATION. WILL REASSESS.
[2019-11-04 06:20] LABS: CREATININE 2.3 mg/dL (0.7-1.3)
[2019-11-04 06:24] LABS: MAGNESIUM 3.2 mg/dL (1.6-2.3); POTASSIUM 5.7 mmol/l (3.5-5.1)
[2019-11-04 08:00] VITALS: BP 124/75
--- NOTE | 2019-11-04 10:04 | NUR ---
PT AWAKE, ALERT, ORIENTED X 3. LUNGS CLEAR, 1 LPM NC. BAR[place]. PT TO U/S FOR ECHOCARDIOGRAM AT THIS TIME, THEN THORACENTESIS LEFT SIDE TODAY, RIGHT TOMORROW. NO DISTRESS, NO COMPLAINTS.
[2019-11-04 11:30] VITALS: BP 135/81
--- NOTE | 2019-11-04 13:00 | NUR ---
PT TOLERATED WELL THE LEFT SIDED THORACENTESIS DONE THIS MORNING. PT WAS ABLE TO MOVE HIS BOWELS, SPECIMEN SENT FOR OCCULT BLOOD CHECK. PT BARAHONA. NO REPORT OF EXCESSIVE PAIN FROM PROCEDURE.
[2019-11-04 15:00] VITALS: BP 98/54
--- NOTE | 2019-11-04 18:55 | NUR ---
PT PROVIDED 1800 PAIN MED, STATES THAT HE IS READY FOR IT. NO CHANGE IN STATUS NOTED.
[2019-11-04 19:00] VITALS: BP 119/67
--- NOTE | 2019-11-04 19:29 | NUR ---
ASSESSMENT COMPLETED. NO DISTRESS NOTED; O2 INFUSING PER NC @1LITER/MIN . RESP EVEN AND UNLABORED AT THIS TIME. IV SITE PATENT AND SL. GAUZE DRESSING INTACT TO LEFT LOWER BACK; ENCOURAGED TO CALL FOR ANY NEEDS. CALL LIGHT IS IN REACH. WILL CONTINUE TO MONITOR.
[2019-11-04 23:55] VITALS: BP 139/79
--- NOTE | 2019-11-04 23:55 | NUR ---
PT. RESTING IN BED WITH NO DISTRESS NOTED; VSS. MEDICATED WITH ORDERED/SCHEDULED PERCOCET FOR CHRONIC PAIN; WILL REASSESS. DENIES FURTHER NEEDS.
[2019-11-05 04:03] VITALS: BP 121/64
--- NOTE | 2019-11-05 04:10 | NUR ---
VSS. NO DISTRESS NOTED; DENIES NEEDS. CALL LIGHT IS IN REACH.
[2019-11-05 05:45] LABS: HEMATOCRIT 32.4 % (39.0-50.0); HEMOGLOBIN 9.5 g/dl (14.0-18.0); MEAN CELL VOLUME 98.2 fL CALC (80.0-100.0); MEAN CORPUSCULAR HGB 28.8 pG CALC (26.0-32.0); MEAN CORPUSCULAR HGB CONC 29.3 g/dL CAL (32.0-36.0); RED BLOOD COUNT 3.3 mill/uL (4.70-6.10); RED CELL DISTRI WIDTH 14.6 % (11.5-15.5)
[2019-11-05 06:19] LABS: CREATININE 2.4 mg/dL (0.7-1.3); MAGNESIUM 3.6 mg/dL (1.6-2.3)
[2019-11-05 06:20] LABS: POTASSIUM 5.6 mmol/l (3.5-5.1)
[2019-11-05 07:27] VITALS: BP 129/73
--- NOTE | 2019-11-05 09:00 | NUR ---
PT SEEN AWAKE, ALERT, ORIENTED X 3. LUNGS CLEAR, 1 LPM NC. PT READY FOR RIGHT SIDE THORACENTESIS TODAY. NO DISTRESS, NO SHORTNESS OF BREATH. PT STATES THAT HE IS FEELING BETTER SINCE YESTERDAY'S PROCEDURE.
[2019-11-05 11:31] VITALS: BP 137/67
[2019-11-05] MEDS ORDERED: LASIX 40 MG TAB40 MG PO (11:58)
[2019-11-05] MEDS ORDERED: ASPIRIN CHEWABL81 MG PO (11:58)
[2019-11-05] MEDS ORDERED: CARDIZEM CD240 MG PO (11:58)
--- NOTE | 2019-11-05 13:36 | NUR ---
PT HAS BEEN DISCHARGED TO HOME. PT VERBALIZED UNDERSTANDING OF DC INSTRUCTIONS, TAKEN BY WHEELCHAIR TO VEHICLE ACCOMPANIED BY HIS . PT LEAVES [facility] [place] [facility] IN STABLE CONDITION. PT TAKEN FOR SHORT WALK TO WATCH OXYGEN SATURATION NUMBERS, SEEN TO DIP INITIALLY TO 89%, THEN REMAIN AT 93% FOR THE REST OF THE WALK AND AFTER. PT HAD FELT THAT HE REALLY NEEDED OXYGEN AT HOME.
== END 2019-11-05 13:30 | disposition home or self-care (01) | DRG 291 ==
LOC: ED 14:46 → ED-I 16:49 → ED 17:04 → MS2 17:05
PROVIDERS: Family Medicine; Internal Medicine; Nurse Practitioner; ADMIT Internal Medicine; ATTEND Internal Medicine
PROC: 30233N1 Transfusion of Nonautologous Red Blood Cells into Peripheral Vein, Percutaneous Approach (ICD-10-PCS; principal; 2019-11-02)
PROC: 0W9B3ZZ Drainage of Left Pleural Cavity, Percutaneous Approach (ICD-10-PCS; 2019-11-04)
DX: I13.0 Hypertensive heart and chronic kidney disease with heart failure and stage 1 through stage 4 chronic kidney disease, or unspecified chronic kidney disease (principal); J18.9 Pneumonia, unspecified organism; J96.01 Acute respiratory failure with hypoxia; I50.33 Acute on chronic diastolic (congestive) heart failure; N18.4 Chronic kidney disease, stage 4 (severe); E46 Unspecified protein-calorie malnutrition; Z68.1 Body mass index [BMI] 19.9 or less, adult; N17.9 Acute kidney failure, unspecified; J44.0 Chronic obstructive pulmonary disease with (acute) lower respiratory infection; I25.810 Atherosclerosis of coronary artery bypass graft(s) without angina pectoris; J91.8 Pleural effusion in other conditions classified elsewhere; I48.0 Paroxysmal atrial fibrillation; I25.10 Atherosclerotic heart disease of native coronary artery without angina pectoris; D63.1 Anemia in chronic kidney disease; E87.5 Hyperkalemia; G62.9 Polyneuropathy, unspecified; I08.0 Rheumatic disorders of both mitral and aortic valves; R91.1 Solitary pulmonary nodule; K59.00 Constipation, unspecified; I71.4 Abdominal aortic aneurysm, without rupture; Z95.3 Presence of xenogenic heart valve; Z95.1 Presence of aortocoronary bypass graft; Z86.718 Personal history of other venous thrombosis and embolism; Z85.038 Personal history of other malignant neoplasm of large intestine; Z92.21 Personal history of antineoplastic chemotherapy; Z79.82 Long term (current) use of aspirin; Z95.820 Peripheral vascular angioplasty status with implants and grafts; Z20.828 Contact with and (suspected) exposure to other viral communicable diseases; Z95.828 Presence of other vascular implants and grafts
CPT/HCPCS: G0378; P9016

== ENCOUNTER 2019-11-12 14:17 | Emergency (ER) | payer MEDICARE ==
[~2019-11-12] VITALS: Ht 182.9 cm; Wt 52.0 kg
[~2019-11-12 14:17] MED LIST changes: +ASPIRIN CHEWABL81 MG PO; +CARDIZEM CD240 MG PO; +LASIX 40 MG TAB40 MG PO
[2019-11-12 16:16] LABS: ALBUMIN 3.5 g/dL (3.2-5.0); BILIRUBIN, TOTAL 0.6 mg/dL (0.0-1.4); CREATININE 2.7 mg/dL (0.7-1.3); TOTAL PROTEIN 6.3 g/dL (6.3-8.2)
[2019-11-12 16:18] LABS: IMMATURE GRANULOCYTES 0.6 % (0.0-5.0); MEAN CELL VOLUME 102.2 fL CALC (80.0-100.0); MEAN CORPUSCULAR HGB 30.4 pG CALC (26.0-32.0); MEAN CORPUSCULAR HGB CONC 29.8 g/dL CAL (32.0-36.0); NEUT# 6.2 thou/uL (1.82-7.42); RED BLOOD COUNT 1.84 mill/uL (4.70-6.10); RED CELL DISTRI WIDTH 16.4 % (11.5-15.5)
[2019-11-12 16:23] LABS: POTASSIUM 5.6 mmol/l (3.5-5.1)
[2019-11-12 16:24] LABS: HEMATOCRIT 18.8 % (39.0-50.0); HEMOGLOBIN 5.6 g/dl (14.0-18.0)
[2019-11-12] MEDS ORDERED: MIRTAZAPINE15 MG PO (16:37)
[2019-11-12] MEDS ORDERED: BUMETANIDE1 MG PO (16:37)
[2019-11-12 18:35] VITALS: BP 104/54
[2019-11-12 19:10] VITALS: BP 104/54
== END 2019-11-12 19:12 | disposition short-term general hospital (02) ==
LOC: ED 14:17
PROVIDERS: Family Medicine
PROC: 30233N1 Transfusion of Nonautologous Red Blood Cells into Peripheral Vein, Percutaneous Approach (ICD-10-PCS; principal; 2019-11-12)
DX: I21.4 Non-ST elevation (NSTEMI) myocardial infarction (principal); I11.0 Hypertensive heart disease with heart failure; I50.9 Heart failure, unspecified; D64.9 Anemia, unspecified; Z86.718 Personal history of other venous thrombosis and embolism; Z95.1 Presence of aortocoronary bypass graft; Z85.038 Personal history of other malignant neoplasm of large intestine; Z90.49 Acquired absence of other specified parts of digestive tract; Z92.3 Personal history of irradiation; Z92.21 Personal history of antineoplastic chemotherapy; Z79.82 Long term (current) use of aspirin; Z20.828 Contact with and (suspected) exposure to other viral communicable diseases
CPT/HCPCS: P9016

== ENCOUNTER 2019-11-25 08:49 | Emergency (ER) | payer MEDICARE ==
[~2019-11-25] VITALS: Ht 182.9 cm; Wt 42.0 kg
[~2019-11-25 08:49] MED LIST changes: +BUMETANIDE1 MG PO; +MIRTAZAPINE15 MG PO
[2019-11-25] MEDS ORDERED: BUMETANIDE1 MG PO (10:51)
[2019-11-25] MEDS ORDERED: REMERON7.5 MG PO (10:51)
[2019-11-25] MEDS ORDERED: EZETIMIBE10 MG PO (10:52)
[2019-11-25] MEDS ORDERED: LIPITOR40 M1 PO (10:52)
[2019-11-25] MEDS ORDERED: DILTIAZEM HCL240 M2 PO (10:52)
[2019-11-25] MEDS ORDERED: FUROSEMIDE20 MG PO (10:53)
[2019-11-25] MEDS ORDERED: TOPROL XL50 MG PO (10:53)
[2019-11-25] MEDS ORDERED: OXYCODO-APAP1 TA2 PO (10:54)
[2019-11-25] MEDS ORDERED: CYMBALTA20 MG PO (10:54)
[2019-11-25 12:40] VITALS: BP 137/62
== END 2019-11-25 12:40 | disposition hospice, inpatient (51) ==
LOC: ED 08:49
DX: S79.912A Unspecified injury of left hip, initial encounter (principal); S50.312A Abrasion of left elbow, initial encounter; I10 Essential (primary) hypertension; I71.4 Abdominal aortic aneurysm, without rupture; W01.0XXA Fall on same level from slipping, tripping and stumbling without subsequent striking against object, initial encounter; Y92.009 Unspecified place in unspecified non-institutional (private) residence as the place of occurrence of the external cause; Z95.820 Peripheral vascular angioplasty status with implants and grafts; Z95.1 Presence of aortocoronary bypass graft; Z95.2 Presence of prosthetic heart valve; Z86.718 Personal history of other venous thrombosis and embolism; Z51.5 Encounter for palliative care